=== PATIENT | female | born 1935 | race Caucasian/White ===

== ENCOUNTER 2016-09-14 18:15 | Emergency (ER) | payer MEDICARE ==
[~2016-09-14] VITALS: Ht 165.1 cm; Wt 104.3 kg
[~2016-09-14 18:15] MED LIST: ASPI325T; ATEN50TA2; COLA100C2; DIOV160T5; ISOS10TA2; LASI20TA; LIDO5DIS; POTA20TA; SENN8.6T14; SIMV40TA2; SPIR25TA2; STALEVO; VICO5TAB; VICODINES TAB; [UNRECOGNIZED DRUG - OTHER]
[2016-09-14 19:13] LABS: BASO # 0.1 K/mm3 (0.0-0.2); BASO % 1.3 % (0.0-1.0); EOS # 0.1 K/mm3 (0.0-0.50); EOS % 1.1 % (0.0-3.0); LARGE UNSTAINED CELL # 0.1 K/mm3 (0.0-0.4); LARGE UNSTAINED CELL % 0.7 % (0.0-4.0); LYMPH % 10.1 % (24.0-44.0); MEAN CORPUSCULAR HEMOGLOBIN 31.5 pg (27.0-33.0); MEAN CORPUSCULAR VOLUME 95.5 fl (80.0-96.0); MONO # 0.6 K/mm3 (0.0-0.8); MONO % 5.6 % (0.0-5.0); NEUTROPHILS # 7.9 K/mm3 (1.8-7.7); NEUTROPHILS % 81.2 % (36.0-66.0); PLATELET COUNT, AUTOMATED 228 k/mm3 (150-450); RED CELL DISTRIBUTION WIDTH 13.2 % (11.5-14.5); WHITE BLOOD COUNT 9.8 K/mm3 (4.0-10.0)
--- NOTE | 2016-09-14 19:15 | REP ---
Chest one-view HISTORY: Shortness of breath Comparison: 02/09/2016 The lungs are clear. The heart is normal in size. The pulmonary vasculature is normal in appearance. Impression: No acute disease. Signed by Favian Abad MD 09/14/2016 07:07 P
[2016-09-14 19:27] LABS: ANION GAP 8 MEQ/L (8-16); BLOOD UREA NITROGEN 19 MG/DL (7-18); CALCIUM LEVEL 8.9 MG/DL (8.8-10.2); CARBON DIOXIDE LEVEL 31 MEQ/L (21-32); CHLORIDE LEVEL 99 MEQ/L (98-107); CREATININE FOR GFR 0.88 MG/DL (0.55-1.02); GLOMERULAR FILTRATION RATE > 60.0 (>32); GLUCOSE, FASTING 96 MG/DL (83-110); POTASSIUM SERUM 4.4 MEQ/L (3.5-5.1); SODIUM LEVEL 138 MEQ/L (136-145)
[2016-09-14] MEDS ORDERED: IPRATROPIUM 0.5MG/ALBUTEROL 2.5MG INH SOL UD 3ML (DUONEB)(J7620) As Ordered ONE (19:52)
[2016-09-14 20:07] LABS: ALBUMIN 3.7 GM/DL (3.2-5.2); ALBUMIN/GLOBULIN RATIO 1.23 (1.00-1.93); ALKALINE PHOSPHATASE 121 U/L (45-117); ALT/SGPT 8 U/L (12-78); AST/SGOT 16 U/L (15-37); BILIRUBIN,DIRECT 0.3 MG/DL (0.0-0.2); BILIRUBIN,TOTAL 0.9 MG/DL (0.2-1.0); TOTAL PROTEIN 6.7 GM/DL (6.4-8.2)
[2016-09-14] MEDS ORDERED: ACETAMINOPHEN 325 MG TAB As Ordered ONE (21:40)
[2016-09-14] MEDS ORDERED: ALPRAZolam 0.25 MG TAB As Ordered ONE (21:40)
[2016-09-14] MEDS ORDERED: ISOVUE-370 76% 100ML VIAL (Q9967) As Ordered ONE (21:52)
--- NOTE | 2016-09-14 22:04 | ECGEPIP ---
Stationary ECG Study [facility] - ED Test Date: 2016-09-14 Pat Name: WINTER VALDES Department: Room: - Gender: F Loader Helper: PérezB: 1935 Requested By: Jerome Wasserman Order Number: [id number] Reading MD: eY Hickman Measurements Intervals [place] Rate: 79 P: [place]: 0 QRS: 13 QRSD: 80 T: 33 QT: 349 QTc: 400 Interpretive Statements SINUS RHYTHM Electronically Signed On 09-14-2016 22:04:23 EST by Ye Hickman
--- NOTE | 2016-09-14 22:50 | REPUSA ---
CT angiogram of the chest Clinical statement: Chest pain and shortness of breath. Technique: Multiple axial CT images were obtained from the thoracic inlet through the upper abdomen a fter a bolus administration of nonionic intravenous contrast. Coronal and sagittal reconstructions we re also obtained. No comparison is available. Findings: The pulmonary arteries are well-opacified with contrast, with no intraluminal filling defec ts to suggest embolism. The thoracic aorta is unremarkable. Thyroid gland is within normal limits. Th ere is no thoracic lymphadenopathy. There are no pericardial or pleural effusions. The lungs are marcie r. Limited imaging of the upper abdomen is unremarkable. There are no suspicious osseous lesions. Impression: Unremarkable CT examination of the chest. No evidence of pulmonary embolism.
[2016-09-14] MEDS ORDERED: TRAZ50TA4 PO (23:30)
[2016-09-14] MEDS ORDERED: VOLT1GEL24 TD (23:30)
[2016-09-14] MEDS ORDERED: VENL37TA PO (23:30)
[2016-09-14] MEDS ORDERED: ASPI81TAEC PO (23:30)
[2016-09-14] MEDS ORDERED: SPIR50TA2 PO (23:30)
[2016-09-14] MEDS ORDERED: POTA10CA PO (23:30)
[2016-09-14] MEDS ORDERED: ACET-654 PO (23:30)
[2016-09-14] MEDS ORDERED: ATEN25TA PO (23:30)
[2016-09-14] MEDS ORDERED: LIDO5DIS36 TD (23:30)
[2016-09-14] MEDS ORDERED: NITR4TASL SL (23:30)
[2016-09-14] MEDS ORDERED: [UNRECOGNIZED DRUG - CODE] PO (23:30)
[2016-09-14] MEDS ORDERED: HYDR-3716 PO (23:30)
[2016-09-14] MEDS ORDERED: NYST100024 TOP (23:30)
[2016-09-14] MEDS ORDERED: CORITAB5 PO (23:30)
[2016-09-14] MEDS ORDERED: GABA-283 PO (23:30)
[2016-09-14] MEDS ORDERED: LOPE2CA PO (23:30)
[2016-09-14] MEDS ORDERED: MIRA0.5T PO (23:30)
[2016-09-14] MEDS ORDERED: SIMV20TA2 PO (23:30)
[2016-09-14] MEDS ORDERED: CARB25TA PO (23:30)
[2016-09-14] MEDS ORDERED: KEPP500T6 PO (23:30)
[2016-09-14] MEDS ORDERED: SINE25TACR PO ×2 (23:30)
--- NOTE | 2016-09-15 00:19 | EDDOCDS ---
Physician Documentation [facility] Name: Sagrario Willoughby Age: 81 yrs Sex: Female : 1935 Arrival Date: 09/14/2016 Time: 18:15 Bed 21 Private MD: La Ling Disposition: 09/14 23:31 Critical Care: Critical care not applicable. le Disposition: 09/14/16 23:28 Discharged to Home/Self Care. Impression: Shortness of breath. - Condition is Stable. - Discharge Instructions: Shortness of Breath. - Medication Reconciliation, Local Pharmacy Hours form. - Follow up: La Ling; When: Call to arrange an appointment; Reason: Recheck today's complaints, Continuance of care. - Problem is new. - Symptoms have improved. - Notes: Return to the ED for any further concerns Historical: - Allergies: Codeine Sulfate; Iron (Ferrous Gluconate); Talwin; - Home Meds: 1. carbidopa-levodopa 25-100 mg Oral tab 0.5 tab 3 times per day 2. carbidopa-levodopa 25-100 mg Oral TbER 1 tab 3 times per day tapering dose getting stronger 3. loperamide 2 mg Oral tab 2 tabs 4. potassium chloride 10 mEq Oral cpER 2 caps 2 times per day 5. spironolactone 50 mg Oral tab 1 tab 2 times per day 6. nystatin 100,000 unit/gram Topical powd 3 times per day 7. venlafaxine 37.5 mg oral cp24 1 cap once daily 8. Mirapex 0.5 mg Oral tab 1 tab 9. Requip 2 mg Oral tab 3 tabs daily 10. acetaminophen 325 mg Oral tab 2 tabs every 4-6 hours 11. aspirin 325 mg Oral tab 1 tab once daily 12. Coricidin HBP 10-200 mg oral cap Unknown as needed 13. Voltaren 1 % topical gel 4 times per day 14. gabapentin 400 mg Oral cap daily 15. hydrocodone-acetaminophen 7.5-325 mg Oral tab 1 tab every 4 hours 16. Lidoderm 5 % Topical ptmd 1 patch once daily 17. Nitrostat 0.4 mg SL subl 1 tab every 5 minutes 18. trazodone 50 mg Oral tab 1 tab daily 19. Keppra 500 mg Oral tab 1 tab 2 times per day 20. simvastatin 20 mg Oral tab 1 tab once daily 21. atenolol 25 mg Oral tab 1 tab once daily - PMHx: edema; Epilepsy; Hypertension; Parkinson's Disease; paralysis agitans; - PSHx: Disc surgery; Cholecystectomy; Hysterectomy; low back surgery; c5 graft from hip; Cardiac stents; heart catherization; right achilles tendon lengthening; c8 fusion; - Social history: Smoking status: Patient states was never smoker of tobacco. No barriers to communication noted, The patient speaks fluent Polish, Speaks appropriately for age. - Family history: Not pertinent. - : The pt / caregiver states he / she is not on anticoagulants. Home medication list is obtained from the facility MAR. - Exposure Risk Screening:: None identified. Vital Signs: 18:18 BP 157 / 81; Pulse 84; Resp 18 S; Temp 97.6(O); Pulse Ox 94% on R/A; Weight 104.33 kg / dd6 230.01 lbs (R); Height 5 ft. 5 in. (165.10 cm) (R); 19:01 Pulse 82 MON; kas2 19:01 Resp 18; Temp 97.9(O); Pain 0/10; kas2 19:02 BP 145 / 66 (auto/); kas2 19:17 BP 144 / 63 (auto/); kas2 19:17 Pulse 78 MON; Pulse Ox 96% ; kas2 19:32 BP 179 / 74 (auto/); kas2 19:32 Pulse 80 MON; Pulse Ox 95% ; kas2 20:32 BP 155 / 67 (auto/); kas2 20:32 Pulse 90 MON; Pulse Ox 93% ; kas2 21:11 BP 145 / 67 (auto/); kas2 21:11 Pulse 92 MON; Pulse Ox 95% ; kas2 21:32 BP 127 / 65 (auto/); kas2 21:32 Pulse 88 MON; Pulse Ox 94% ; kas2 22:02 BP 136 / 99 (auto/); kas2 22:02 Pulse 84 MON; Pulse Ox 94% ; kas2 22:32 BP 143 / 65 (auto/); kas2 22:32 Pulse 82 MON; Pulse Ox 94% ; kas2 23:33 BP 145 / 64; Pulse 85; Resp 18; Temp 98.9(TE); Pulse Ox 98% on R/A; Pain 0/10; zaid 18:18 Body Mass Index 38.27 (104.33 kg, 165.10 cm) dd6 MDM: 18:50 -Blood Culture (Adults Only), peripheral from different site, or from device/port/PICC ml6 etc. if present ordered. 18:50 If pre-RCE wait time >60 minutes, inform reg. staff to do full reg ordered. ml6 18:50 Undress patient appropriately for examination ordered. ml6 18:50 -Blood Culture Ordered. EDMS 18:50 -Influenza A&B Rapid Antigen - Nose Ordered. EDMS 18:50 BMP Ordered. EDMS 18:51 BNP Ordered. EDMS 18:51 CBC with Diff Ordered. EDMS 18:51 Cardiac Marker Panel Ordered. EDMS 18:51 ECG WITH READING ER PHYS+CARDIAG ordered. EDMS 18:58 Chest, 1 view Ordered. EDMS 19:37 BNP Reviewed. le 19:37 CBC with Diff Reviewed. le 19:37 Chest, 1 view Reviewed. le 19:39 BMP Reviewed. le 19:39 -Influenza A&B Rapid Antigen - Nose Reviewed. le 19:39 Cardiac Marker Panel Reviewed. le 19:40 D-Dimer Quant Ordered. EDMS 19:41 Albuterol-Ipratropium 3 ml Inhalation once ordered. le 19:41 Call Respiratory ordered. le 19:41 Call Respiratory ordered. le 19:43 Lactic Acid (Webb tube on ice) Ordered. EDMS 19:51 Call Respiratory complete. tmm1 19:52 Call Respiratory complete. tmm1 19:53 -Blood Culture (Adults Only), peripheral from different site, or from device/port/PICC tmm1 etc. if present complete. 19:53 BLOOD CULTURES Ordered. EDMS 19:56 LIVER PROFILE Ordered. EDMS 20:14 BMP Reviewed. le 20:14 D-Dimer Quant Reviewed. le 20:14 LIVER PROFILE Reviewed. le 20:14 Cardiac Marker Panel Reviewed. le 20:16 CT Chest Angio R/O PE Ordered. EDMS 21:25 Acetaminophen Tablet 650 mg PO once ordered. le 21:27 BED REQUEST+ADM ordered. EDMS 21:38 ALPRAZolam Tablet 0.5 mg PO once ordered. le 22:50 Ambulate Patient wth Pulse Oximetry ordered. le 09/15 00:08 Financial registration complete. hs2 Administered Medications: 09/14 20:04 Drug: Albuterol-Ipratropium 3 ml [ipratropium-albuterol 0.5 mg-3 mg(2.5 mg base)/3 mL rs5 nebulization soln (3 mL)] Route: Inhalation; 21:54 Drug: Acetaminophen 650 mg [acetaminophen 325 mg tablet (2 tabs)] Route: PO; kas2 21:54 Drug: ALPRAZolam 0.5 mg [alprazolam 0.25 mg tablet (2 tabs)] Route: PO; kas2 Signatures: Dispatcher [employer] EDMS Isela Snider, ORGAN RECOVERY COORDINATOR ORGAN RECOVERY COORDINATOR Clayton Lopez, RN RN ml6 Brittany Owusu RN RN hs1 McLTia yoosa, COMPLAINT INVESTIGATIONS OFFICER COMPLAINT INVESTIGATIONS OFFICER tmm1 Brian Brown RN RN Dana RyaRN RN nn1 Ceci Newton, Reg Reg hs2 Arjun Yee RT rs5 Chelita Rojas RN kas2 The chart was reviewed and I authenticate all verbal orders and agree with the evaluation and treatment provided.Corrections: (The following items were deleted from the chart) 18:58 18:51 Chest, 2 view (PA\E\Lat)+XR ordered. EDMS EDMS 19:56 19:43 LIVER PROFILE+LAB ordered. EDMS EDMS 20:12 19:43 ARTERIAL BLOOD GAS+LAB ordered. EDMS EDMS MTDD
--- NOTE | 2016-09-15 00:19 | EDDOCDS ---
Nurse's Notes [facility] Name: Sagrario Valdes Age: 81 yrs Sex: Female : 1935 Arrival Date: 09/14/2016 Time: 18:15 Bed 21 Private MD: La Ling Diagnosis: Shortness of breath Presentation: 09/14 18:21 Presenting complaint: Patient states: [facility] concerned with decreasing oxygen hs1 level. Patient reports arm pain and headache recently decreased but was there this morning per patient. Adult Sepsis Screening: The patient does not have new or worsening altered mentation. Patient's respiratory rate is less than 22. Systolic blood pressure is greater than 100. Patient has a qSOFA score of 0- Negative Sepsis Screen. Suicide/Homicide risk assessment- the patient denies having any suicidal and/or homicidal ideations and does not present with any other emotional, behavioral or mental health complaints. 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 Transition of care: patient was not received from another setting of care. 18:21 Acuity: ZAID Level 3 hs1 18:21 Method Of Arrival: Walkin/Carried/Asstd hs1 Triage Assessment: 18:34 General: Appears in no apparent distress, Behavior is appropriate for age, cooperative. hs1 Pain: Denies pain. Neurological: No deficits noted. Respiratory: Onset: The symptoms/episode began/occurred yesterday, Reports shortness of breath. Derm: Skin is pink, warm & dry. normal. Historical: - Allergies: Codeine Sulfate; Iron (Ferrous Gluconate); Talwin; - Home Meds: 1. carbidopa-levodopa 25-100 mg Oral tab 0.5 tab 3 times per day 2. carbidopa-levodopa 25-100 mg Oral TbER 1 tab 3 times per day tapering dose getting stronger 3. loperamide 2 mg Oral tab 2 tabs 4. potassium chloride 10 mEq Oral cpER 2 caps 2 times per day 5. spironolactone 50 mg Oral tab 1 tab 2 times per day 6. nystatin 100,000 unit/gram Topical powd 3 times per day 7. venlafaxine 37.5 mg oral cp24 1 cap once daily 8. Mirapex 0.5 mg Oral tab 1 tab 9. Requip 2 mg Oral tab 3 tabs daily 10. acetaminophen 325 mg Oral tab 2 tabs every 4-6 hours 11. aspirin 325 mg Oral tab 1 tab once daily 12. Coricidin HBP 10-200 mg oral cap Unknown as needed 13. Voltaren 1 % topical gel 4 times per day 14. gabapentin 400 mg Oral cap daily 15. hydrocodone-acetaminophen 7.5-325 mg Oral tab 1 tab every 4 hours 16. Lidoderm 5 % Topical ptmd 1 patch once daily 17. Nitrostat 0.4 mg SL subl 1 tab every 5 minutes 18. trazodone 50 mg Oral tab 1 tab daily 19. Keppra 500 mg Oral tab 1 tab 2 times per day 20. simvastatin 20 mg Oral tab 1 tab once daily 21. atenolol 25 mg Oral tab 1 tab once daily - PMHx: edema; Epilepsy; Hypertension; Parkinson's Disease; paralysis agitans; - PSHx: Disc surgery; Cholecystectomy; Hysterectomy; low back surgery; c5 graft from hip; Cardiac stents; heart catherization; right achilles tendon lengthening; c8 fusion; - Social history: Smoking status: Patient states was never smoker of tobacco. No barriers to communication noted, The patient speaks fluent Canadian, Speaks appropriately for age. - Family history: Not pertinent. - : The pt / caregiver states he / she is not on anticoagulants. Home medication list is obtained from the facility MAR. - Exposure Risk Screening:: None identified. Screenin:06 Screening information is obtained from the patient. Fall risk: At risk due to age. jmb Assistance ADL's: requires no assistance with activities of daily living. Abuse/DV Screen: The patient / caregiver reports he/she is: not in a situation that causes fear, pain or injury. Nutritional screening: No deficits noted. home support is adequate. 09/15 00:17 Advance Directives: There is an active DNR order and the pt has a copy here at this nn1 time. Assessment: 09/14 19:02 General: Verbal report given by Quintin Benton RN. Assumed care of patient at this time.. kas2 19:06 General: Appears in no apparent distress, comfortable, Behavior is appropriate for age, jmb cooperative. Pain: Denies pain. Neurological: Level of Consciousness is awake, alert, obeys commands, Oriented to person, place, time, Car Seat Maker are weak bilaterally Speech is normal, Facial symmetry appears normal, Facial symmetry: tongue is midline. Cardiovascular: Capillary refill < 3 seconds Heart tones present Pulses are all present. Rhythm is regular. Respiratory: Airway is patent Respiratory effort is even, unlabored, Respiratory pattern is regular, symmetrical, Breath sounds are diminished bilaterally. GI: Abdomen is obese, Bowel sounds present X 4 quads. Abd is soft X 4 quads. Derm: Skin is pink, warm & dry. Musculoskeletal: Range of motion intact in all extremities. 19:49 General: Appears in no apparent distress, comfortable, well nourished, well groomed, kas2 Behavior is appropriate for age, cooperative. Pain: Denies pain. Neurological: Level of Consciousness is awake, alert, obeys commands, Oriented to person, place, time. Cardiovascular: Capillary refill < 3 seconds Heart tones S1 S2 present Rhythm is sinus rhythm No ectopy. Respiratory: Airway is patent Respiratory effort is even, unlabored, Respiratory pattern is regular, symmetrical, Breath sounds are diminished bilaterally. Derm: Skin is intact, is healthy with good turgor, Skin is dry, Skin is pink, warm & dry. Skin temperature is warm. Musculoskeletal: Range of motion intact in all extremities. 20:38 General: Patient resting in bed with family at bedside. Denies pain or discomfort. No kas2 distress noted. Airway patent and respiratory effort even and unlabored. Call cruz within reach. Will continue to monitor.. 21:15 General: Patient very anxious and not wanting CT scan and thinking about leaving. RN kas2 and daughter talked patient in to staying and calmed her down. Isela Ch PRODUCTION STATISTICAL CLERK aware. Meds ordered. . 22:00 General: Patient gone to CT scan via hospital bed with RN. kas2 22:21 General: Patient back from CT scan via hospital bed with RN. Resettled in bed. No kas2 apparent distress noted. VSS. Daughter at bedside. Appears comfortable. Call cruz within reach. Will continue to monitor.. 22:42 General: Appears in no apparent distress, comfortable, Behavior is appropriate for age, kas2 cooperative. Pain: Denies pain. Neurological: Level of Consciousness is awake, alert, Oriented to person, place, time. Respiratory: Airway is patent Respiratory effort is even, unlabored, Respiratory pattern is regular, symmetrical. Derm: Skin is intact, Skin is dry, Skin is pink, warm & dry. Skin temperature is warm. Vital Signs: 18:18 BP 157 / 81; Pulse 84; Resp 18 S; Temp 97.6(O); Pulse Ox 94% on R/A; Weight 104.33 kg dd6 (R); Height 5 ft. 5 in. (165.10 cm) (R); 19:01 Pulse 82 MON; kas2 19:01 Resp 18; Temp 97.9(O); Pain 0/10; kas2 19:02 BP 145 / 66 (auto/); kas2 19:17 BP 144 / 63 (auto/); kas2 19:17 Pulse 78 MON; Pulse Ox 96% ; kas2 19:32 BP 179 / 74 (auto/); kas2 19:32 Pulse 80 MON; Pulse Ox 95% ; kas2 20:32 BP 155 / 67 (auto/); kas2 20:32 Pulse 90 MON; Pulse Ox 93% ; kas2 21:11 BP 145 / 67 (auto/); kas2 21:11 Pulse 92 MON; Pulse Ox 95% ; kas2 21:32 BP 127 / 65 (auto/); kas2 21:32 Pulse 88 MON; Pulse Ox 94% ; kas2 22:02 BP 136 / 99 (auto/); kas2 22:02 Pulse 84 MON; Pulse Ox 94% ; kas2 22:32 BP 143 / 65 (auto/); kas2 22:32 Pulse 82 MON; Pulse Ox 94% ; kas2 23:33 BP 145 / 64; Pulse 85; Resp 18; Temp 98.9(TE); Pulse Ox 98% on R/A; Pain 0/10; zaid 18:18 Body Mass Index 38.27 (104.33 kg, 165.10 cm) dd6 Vitals: 18:18 Log In Time: September 14, 2016 at 18:16. dd6 ED Course: 18:17 Patient visited by Elia Edmondson PCA. dd6 18:17 Patient moved to Waiting dd6 18:18 La Ling is Private Physician. dd6 18:19 Patient moved to Pre RCE dd6 18:22 Triage Initiated hs1 18:36 Patient moved to 21 hs1 18:57 Chelita Rojas,RN is Primary Nurse. kas2 19:06 Patient visited by Chelita Rojas RN. kas2 19:06 The patient / caregiver is instructed regarding the plan of care and ED course. Cardiac jmb monitor on. Pulse ox on. NIBP on. 19:06 -Blood Culture Sent. jmb 19:06 -Influenza A&B Rapid Antigen - Nose Sent. jmb 19:06 Inserted saline lock: 20 gauge in left antecubital area and blood collected. The jmb patient tolerated the procedure well. Labs drawn. (by ED staff). Sent per order to lab. Labs/Blood culture drawn. 19:08 Patient visited by Brian Brown RN. jmsherwin 19:16 Patient visited by Rose Herndon PCA. zaid 19:16 Pt greeted and oriented to ED. Patient advised of names of staff involved in care, zaid location of call cruz, wait times and NPO status. Accompanied by Family Member, Patient has correct armband on for positive identification. Placed in gown. Bed in low position. Call light in reach. Side rails up X2. 19:16 Chest, 1 view Returned. EDMS 19:16 EKG done. (by ED staff). Reviewed by Rayo Portillo DO. zaid 19:21 Isela Snider FNP is PHCP. le 19:38 Patient visited by Isela Snider FNP. le 19:40 Patient visited by Isela Snider FNP. le 19:49 D-Dimer Quant Sent. kas2 19:50 Patient visited by Chelita Rojas RN. kas2 20:12 Lactic Acid (Webb tube on ice) Sent. kas2 20:12 BLOOD CULTURES Sent. kas2 20:12 No procedures done that require assistance. Labs drawn. (by ED staff). Sent per order kas2 to lab. 20:13 Patient visited by Chelita Rojas RN. kas2 20:40 Patient visited by Chelita Rojas RN. kas2 21:15 Patient visited by Chelita Rojas RN. kas2 21:54 Patient visited by Chelita Rojas RN. kas2 22:08 EKG-ADULT Returned. EDMS 22:23 Patient visited by Chelita Rojas RN. kas2 22:46 Patient visited by Chelita Rojas RN. kas2 22:59 CT Chest Angio R/O PE Returned. EDMS 23:28 La Ling is Referral Physician. le 23:33 Patient visited by Rose Herndon PCA. zaid Administered Medications: 20:04 Drug: Albuterol-Ipratropium 3 ml [ipratropium-albuterol 0.5 mg-3 mg(2.5 mg base)/3 mL rs5 nebulization soln (3 mL)] Route: Inhalation; 21:54 Drug: Acetaminophen 650 mg [acetaminophen 325 mg tablet (2 tabs)] Route: PO; kas2 21:54 Drug: ALPRAZolam 0.5 mg [alprazolam 0.25 mg tablet (2 tabs)] Route: PO; kas2 RT: 20:04 Initial Med Neb Given as ordered Patient was instructed and evaluated on procedure rs5 Patient tolerated procedure well without adverse effect. Respiratory: Respiratory effort is even, unlabored, Respiratory pattern is regular symmetrical, Reports pt says she is breathing fine. 20:07 ABG's Patient Refused ABG. rs5 Order Results: Lab Order: -Influenza A&B Rapid Antigen - Nose; SPEC'M 09/14/16 18:55 Test: INFLUENZA A RAPID SCR by ICA; Value: INFLUENZA A RESULTS NEGATIVE; Status: F Test: INFLUENZA A RAPID SCR by ICA; Value: Comments:; Status: F Test: INFLUENZA B RAPID SCR by ICA; Value: INFLUENZA B RESULTS NEGATIVE; Status: F Test Note: ; The Influenza test is a direct rapid immunoassay for the qualitative detection of Influenza viral antigen. Cell culture (Viral Culture) testing should be considered to confirm NEGATIVE results and to assist in detecting other viruses that can provide similar clinical symptoms. Please contact the lab within 24 hours [phone]) if confirmatory testing is desired. Lab Order: BMP; SPEC'M 09/14/16 18:55 Test: GLUCOSE, FASTING; Value: 96; Range: 83-110; Units: MG/DL; Status: F Test: BLOOD UREA NITROGEN; Value: 19; Range: 7-18; Abnormal: Above high normal; Units: MG/DL; Status: F Test: CREATININE FOR GFR; Value: 0.88; Range: 0.55-1.02; Units: MG/DL; Status: F Test: GLOMERULAR FILTRATION RATE; Value: > 60.0; Range: >32; Status: F Test: SODIUM LEVEL; Value: 138; Range: 136-145; Units: MEQ/L; Status: F Test: POTASSIUM SERUM; Value: 4.4; Range: 3.5-5.1; Units: MEQ/L; Status: F Test: CHLORIDE LEVEL; Value: 99; Range: 98-107; Units: MEQ/L; Status: F Test: CARBON DIOXIDE LEVEL; Value: 31; Range: 21-32; Units: MEQ/L; Status: F Test: ANION GAP; Value: 8; Range: 8-16; Units: MEQ/L; Status: F Test: CALCIUM LEVEL; Value: 8.9; Range: 8.8-10.2; Units: MG/DL; Status: F Test Note: ; Units are mL/min/1.73 m2 Chronic Kidney Disease Staging per NKF: Stage I & II GFR >=60 Normal to Mildly Decreased Stage III GFR 30-59 Moderately Decreased Stage IV GFR 15-29 Severely Decreased Stage V GFR <15 Very Little GFR Left ESRD GFR <15 on CRM DEVELOPER Test: AST/SGOT; Range: 15-37; Units: U/L; Status: I Test: ALT/SGPT; Range: 12-78; Units: U/L; Status: I Test: ALKALINE PHOSPHATASE; Range: 45-117; Units: U/L; Status: I Test: BILIRUBIN,TOTAL; Range: 0.2-1.0; Units: MG/DL; Status: I Test: BILIRUBIN,DIRECT; Range: 0.0-0.2; Units: MG/DL; Status: I Test: TOTAL PROTEIN; Range: 6.4-8.2; Units: GM/DL; Status: I Test: ALBUMIN; Range: 3.2-5.2; Units: GM/DL; Status: I Test: ALBUMIN/GLOBULIN RATIO; Range: 1.00-1.93; Status: I Lab Order: BNP; SPEC'M 09/14/16 18:55 Test: BRAIN NATRIURETIC PEPTIDE; Value: 204; Range: <100; Abnormal: Above high normal; Units: PG/ML; Status: F Lab Order: CBC with Diff; SPEC'M 09/14/16 18:55 Test: WHITE BLOOD COUNT; Value: 9.8; Range: 4.0-10.0; Units: K/mm3; Status: F Test: RED BLOOD COUNT; Value: 4.36; Range: 4.00-5.40; Units: M/mm3; Status: F Test: HEMOGLOBIN; Value: 13.7; Range: 12.0-16.0; Units: g/dl; Status: F Test: HEMATOCRIT; Value: 41.6; Range: 36.0-47.0; Units: %; Status: F Test: MEAN CORPUSCULAR VOLUME; Value: 95.5; Range: 80.0-96.0; Units: fl; Status: F Test: MEAN CORPUSCULAR HEMOGLOBIN; Value: 31.5; Range: 27.0-33.0; Units: pg; Status: F Test: MEAN CORPUSCULAR HGB CONC; Value: 33.0; Range: 32.0-36.5; Units: g/dl; Status: F Test: RED CELL DISTRIBUTION WIDTH; Value: 13.2; Range: 11.5-14.5; Units: %; Status: F Test: PLATELET COUNT, AUTOMATED; Value: 228; Range: 150-450; Units: k/mm3; Status: F Test: NEUTROPHILS %; Value: 81.2; Range: 36.0-66.0; Abnormal: Above high normal; Units: %; Status: F Test: LYMPH %; Value: 10.1; Range: 24.0-44.0; Abnormal: Below low normal; Units: %; Status: F Test: MONO %; Value: 5.6; Range: 0.0-5.0; Abnormal: Above high normal; Units: %; Status: F Test: EOS %; Value: 1.1; Range: 0.0-3.0; Units: %; Status: F Test: BASO %; Value: 1.3; Range: 0.0-1.0; Abnormal: Above high normal; Units: %; Status: F Test: LARGE UNSTAINED CELL %; Value: 0.7; Range: 0.0-4.0; Units: %; Status: F Test: NEUTROPHILS #; Value: 7.9; Range: 1.8-7.7; Abnormal: Above high normal; Units: K/mm3; Status: F Test: LYMPH #; Value: 1.0; Range: 1.5-4.5; Abnormal: Below low normal; Units: K/mm3; Status: F Test: MONO #; Value: 0.6; Range: 0.0-0.8; Units: K/mm3; Status: F Test: EOS #; Value: 0.1; Range: 0.0-0.50; Units: K/mm3; Status: F Test: BASO #; Value: 0.1; Range: 0.0-0.2; Units: K/mm3; Status: F Test: LARGE UNSTAINED CELL #; Value: 0.1; Range: 0.0-0.4; Units: K/mm3; Status: F Lab Order: Cardiac Marker Panel; [facility] 09/14/16 18:55 Test: CPK CREATINE PHOSPHOKINASE; Value: 74; Range: 26-192; Units: U/L; Status: F Test: CK-MB VALUE MASS; Value: 1.0; Range: 0.0-3.6; Units: NG/ML; Status: F Test: MB/CK RELATIVE INDEX; Value: 1.35; Range: < OR =4; Status: F Test: TROPONIN I; Value: < 0.02; Range: < 0.10; Units: NG/ML; Status: F Test Note: ; DIAGNOSIS CRITERIA MMB ng/ml Relative Index (RI) NON-AMI < or = 5 N/A WEBB ZONE > 5 < or = 4 AMI > 5 > 4 Lab Order: D-Dimer Quant; [facility] 09/14/16 19:35 Test: D-DIMER QUANT; Value: 894.2; Range: <500; Abnormal: Above high normal; Units: ng/ml; Status: F Lab Order: Lactic Acid (Webb tube on ice); [facility] 09/14/16 20:07 Test: LACTIC ACID LEVEL, LACTATE; Value: 1.2; Range: 0.4-2.0; Units: MMOL/L; Status: F Lab Order: LIVER PROFILE; [facility] 09/14/16 18:55 Test: AST/SGOT; Value: 16; Range: 15-37; Units: U/L; Status: F Test: ALT/SGPT; Value: 8; Range: 12-78; Abnormal: Below low normal; Units: U/L; Status: F Test: ALKALINE PHOSPHATASE; Value: 121; Range: 45-117; Abnormal: Above high normal; Units: U/L; Status: F Test: BILIRUBIN,TOTAL; Value: 0.9; Range: 0.2-1.0; Units: MG/DL; Status: F Test: BILIRUBIN,DIRECT; Value: 0.3; Range: 0.0-0.2; Abnormal: Above high normal; Units: MG/DL; Status: F Test: TOTAL PROTEIN; Value: 6.7; Range: 6.4-8.2; Units: GM/DL; Status: F Test: ALBUMIN; Value: 3.7; Range: 3.2-5.2; Units: GM/DL; Status: F Test: ALBUMIN/GLOBULIN RATIO; Value: 1.23; Range: 1.00-1.93; Status: F Radiology Order: EKG-ADULT Test: EKG-ADULT REASON FOR EXAMINATION: Shortness of Breath; Stationary ECG Study; [facility] - ED; ; Test Date: 2016-09-14; Pat Name: SAGRARIO VALDES Department:; Room: -; Gender: F X Ray Physician: abimbola; : 1935 Requested By: Jerome Wasserman; Order Number: [id number] Reading MD: Ye Hickman; Measurements; Intervals [place]; Rate: 79 P:; NV: 0 QRS: 13; QRSD: 80 T: 33; QT: 349; QTc: 400; Interpretive Statements; SINUS RHYTHM; ; Electronically Signed On 09-14-2016 22:04:23 EST by Ye Hickman; Radiology Order: Chest, 1 view Test: Chest, 1 view REASON FOR EXAMINATION: Shortness of Breath; Chest one-view; ; HISTORY: Shortness of breath; ; Comparison: 02/09/2016; ; The lungs are clear. The heart is normal in size. The pulmonary vasculature is; normal in appearance.; ; Impression: No acute disease.; ; ; Signed by; Favian Abad MD 09/14/2016 07:07 P; Radiology Order: CT Chest Angio R/O PE Test: CT Chest Angio R/O PE REASON FOR EXAMINATION: Shortness of Breath; ; CT angiogram of the chest; Clinical statement: Chest pain and shortness of breath.; Technique: Multiple axial CT images were obtained from the thoracic inlet through the upper abdomen a; fter a bolus administration of nonionic intravenous contrast. Coronal and sagittal reconstructions we; re also obtained.; No comparison is available.; Findings: The pulmonary arteries are well-opacified with contrast, with no intraluminal filling defec; ts to suggest embolism. The thoracic aorta is unremarkable. Thyroid gland is within normal limits. Th; ere is no thoracic lymphadenopathy. There are no pericardial or pleural effusions. The lungs are marcie; r. Limited imaging of the upper abdomen is unremarkable. There are no suspicious osseous lesions.; Impression: Unremarkable CT examination of the chest. No evidence of pulmonary embolism.; ; Outcome: 23:28 Discharge ordered by Provider. le 09/15 00:14 Discharge Assessment: Patient awake, alert and oriented x 3. No cognitive and/or nn1 functional deficits noted. Patient verbalized understanding of disposition instructions. 00:14 Discharge Assessment: patient administered narcotics - no. The following High Risk nn1 Discharge criteria are identified: None. Discharged to home via wheelchair, with family. Condition: stable Condition: improved. CT Study completed. Property :Personal belongings accompany Pt. 00:16 Discharged to fpc. Report called to EDUARDO Ballard Patient taken back to [facility] by nn1 [facility]. [place] notified. 00:17 Patient left the ED. nn1 Signatures: Dispatcher [employer] EDMS Isela Snider, HOME PRODUCTION STATISTICAL CLERK Elia Collier, DATA QUALITY CONSULTANT DATA QUALITY CONSULTANT dd6 Brittany Owusu, RN RN hs1 Rose Herndon, DATA QUALITY CONSULTANT DATA QUALITY CONSULTANT zaid Arjun Yee,RT RT rs5 Brian Brown RN RN jmb Nunez, NikkoleRN RN nn1 Chelita Rojas,EDUARDO RN [facility] Corrections: (The following items were deleted from the chart) 09/14 19:56 19:49 LIVER PROFILE+LAB sent. kas2 EDMS 20:07 20:04 ABG's drawn from left radial artery allens test done and positive pressure held rs5 for 5 minutes no bleeding noted pressure bandage applied specimen sent pt. tolerated well rs5 20:12 20:04 ARTERIAL BLOOD GAS+LAB sent. rs5 EDMS MTDD
--- NOTE | 2016-09-17 01:18 | EDDOCDS ---
Physician Documentation [facility] Name: Sagrario Willoughby Age: 81 yrs Sex: Female : 1935 Arrival Date: 09/14/2016 Time: 18:15 Bed 21 Private MD: La Ling Disposition: 09/14 23:31 Critical Care: Critical care not applicable. le Disposition: 09/14/16 23:28 Discharged to Home/Self Care. Impression: Shortness of breath. - Condition is Stable. - Discharge Instructions: Shortness of Breath. - Medication Reconciliation, Local Pharmacy Hours form. - Follow up: La Ling; When: Call to arrange an appointment; Reason: Recheck today's complaints, Continuance of care. - Problem is new. - Symptoms have improved. - Notes: Return to the ED for any further concerns Historical: - Allergies: Codeine Sulfate; Iron (Ferrous Gluconate); Talwin; - Home Meds: 1. carbidopa-levodopa 25-100 mg Oral tab 0.5 tab 3 times per day 2. carbidopa-levodopa 25-100 mg Oral TbER 1 tab 3 times per day tapering dose getting stronger 3. loperamide 2 mg Oral tab 2 tabs 4. potassium chloride 10 mEq Oral cpER 2 caps 2 times per day 5. spironolactone 50 mg Oral tab 1 tab 2 times per day 6. nystatin 100,000 unit/gram Topical powd 3 times per day 7. venlafaxine 37.5 mg oral cp24 1 cap once daily 8. Mirapex 0.5 mg Oral tab 1 tab 9. Requip 2 mg Oral tab 3 tabs daily 10. acetaminophen 325 mg Oral tab 2 tabs every 4-6 hours 11. aspirin 325 mg Oral tab 1 tab once daily 12. Coricidin HBP 10-200 mg oral cap Unknown as needed 13. Voltaren 1 % topical gel 4 times per day 14. gabapentin 400 mg Oral cap daily 15. hydrocodone-acetaminophen 7.5-325 mg Oral tab 1 tab every 4 hours 16. Lidoderm 5 % Topical ptmd 1 patch once daily 17. Nitrostat 0.4 mg SL subl 1 tab every 5 minutes 18. trazodone 50 mg Oral tab 1 tab daily 19. Keppra 500 mg Oral tab 1 tab 2 times per day 20. simvastatin 20 mg Oral tab 1 tab once daily 21. atenolol 25 mg Oral tab 1 tab once daily - PMHx: edema; Epilepsy; Hypertension; Parkinson's Disease; paralysis agitans; - PSHx: Disc surgery; Cholecystectomy; Hysterectomy; low back surgery; c5 graft from hip; Cardiac stents; heart catherization; right achilles tendon lengthening; c8 fusion; - Social history: Smoking status: Patient states was never smoker of tobacco. No barriers to communication noted, The patient speaks fluent Portuguese, Speaks appropriately for age. - Family history: Not pertinent. - : The pt / caregiver states he / she is not on anticoagulants. Home medication list is obtained from the facility MAR. - Exposure Risk Screening:: None identified. Vital Signs: 18:18 BP 157 / 81; Pulse 84; Resp 18 S; Temp 97.6(O); Pulse Ox 94% on R/A; Weight 104.33 kg / dd6 230.01 lbs (R); Height 5 ft. 5 in. (165.10 cm) (R); 19:01 Pulse 82 MON; kas2 19:01 Resp 18; Temp 97.9(O); Pain 0/10; kas2 19:02 BP 145 / 66 (auto/); kas2 19:17 BP 144 / 63 (auto/); kas2 19:17 Pulse 78 MON; Pulse Ox 96% ; kas2 19:32 BP 179 / 74 (auto/); kas2 19:32 Pulse 80 MON; Pulse Ox 95% ; kas2 20:32 BP 155 / 67 (auto/); kas2 20:32 Pulse 90 MON; Pulse Ox 93% ; kas2 21:11 BP 145 / 67 (auto/); kas2 21:11 Pulse 92 MON; Pulse Ox 95% ; kas2 21:32 BP 127 / 65 (auto/); kas2 21:32 Pulse 88 MON; Pulse Ox 94% ; kas2 22:02 BP 136 / 99 (auto/); kas2 22:02 Pulse 84 MON; Pulse Ox 94% ; kas2 22:32 BP 143 / 65 (auto/); kas2 22:32 Pulse 82 MON; Pulse Ox 94% ; kas2 23:33 BP 145 / 64; Pulse 85; Resp 18; Temp 98.9(TE); Pulse Ox 98% on R/A; Pain 0/10; zaid 18:18 Body Mass Index 38.27 (104.33 kg, 165.10 cm) dd6 MDM: 18:50 -Blood Culture (Adults Only), peripheral from different site, or from device/port/PICC ml6 etc. if present ordered. 18:50 If pre-RCE wait time >60 minutes, inform reg. staff to do full reg ordered. ml6 18:50 Undress patient appropriately for examination ordered. ml6 18:50 -Blood Culture Ordered. EDMS 18:50 -Influenza A&B Rapid Antigen - Nose Ordered. EDMS 18:50 BMP Ordered. EDMS 18:51 BNP Ordered. EDMS 18:51 CBC with Diff Ordered. EDMS 18:51 Cardiac Marker Panel Ordered. EDMS 18:51 ECG WITH READING ER PHYS+CARDIAG ordered. EDMS 18:58 Chest, 1 view Ordered. EDMS 19:37 BNP Reviewed. le 19:37 CBC with Diff Reviewed. le 19:37 Chest, 1 view Reviewed. le 19:39 BMP Reviewed. le 19:39 -Influenza A&B Rapid Antigen - Nose Reviewed. le 19:39 Cardiac Marker Panel Reviewed. le 19:40 D-Dimer Quant Ordered. EDMS 19:41 Albuterol-Ipratropium 3 ml Inhalation once ordered. le 19:41 Call Respiratory ordered. le 19:41 Call Respiratory ordered. le 19:43 Lactic Acid (Webb tube on ice) Ordered. EDMS 19:51 Call Respiratory complete. tmm1 19:52 Call Respiratory complete. tmm1 19:53 -Blood Culture (Adults Only), peripheral from different site, or from device/port/PICC tmm1 etc. if present complete. 19:53 BLOOD CULTURES Ordered. EDMS 19:56 LIVER PROFILE Ordered. EDMS 20:14 BMP Reviewed. le 20:14 D-Dimer Quant Reviewed. le 20:14 LIVER PROFILE Reviewed. le 20:14 Cardiac Marker Panel Reviewed. le 20:16 CT Chest Angio R/O PE Ordered. EDMS 21:25 Acetaminophen Tablet 650 mg PO once ordered. le 21:27 BED REQUEST+ADM ordered. EDMS 21:38 ALPRAZolam Tablet 0.5 mg PO once ordered. le 22:50 Ambulate Patient wth Pulse Oximetry ordered. le 09/15 00:08 Financial registration complete. hs2 00:24 [facility] Payment Agreement was scanned into [employer] and attached to record. hs2 10:34 T-Sheet-- Draft Copy was scanned into [employer] and attached to record. gb 10:35 ECG/EKG was scanned into [employer] and attached to record. gb 10:35 Radiology Report was scanned into [employer] and attached to record. gb Administered Medications: 09/14 20:04 Drug: Albuterol-Ipratropium 3 ml [ipratropium-albuterol 0.5 mg-3 mg(2.5 mg base)/3 mL rs5 nebulization soln (3 mL)] Route: Inhalation; 21:54 Drug: Acetaminophen 650 mg [acetaminophen 325 mg tablet (2 tabs)] Route: PO; kas2 21:54 Drug: ALPRAZolam 0.5 mg [alprazolam 0.25 mg tablet (2 tabs)] Route: PO; kas2 Signatures: Dispatcher [employer] EDMS Martha Degroot, Reg Reg gb Isela Snider, RETAIL SALES ASSOCIATE SEASONAL RETAIL SALES ASSOCIATE SEASONAL Clayton Lopez, RN RN ml6 Brittany Owusu RN RN hs1 Amanda Jerez, GEOSPATIAL DEVELOPER GEOSPATIAL DEVELOPER tmm1 Brian BrownRN RN Dana RayRN RN nn1 Ceci Newton, Reg Reg hs2 Arjun Yee RT rs5 Chelita Rojas RN kas2 The chart was reviewed and I authenticate all verbal orders and agree with the evaluation and treatment provided.Corrections: (The following items were deleted from the chart) 18:58 18:51 Chest, 2 view (PA\E\Lat)+XR ordered. EDMS EDMS 19:56 19:43 LIVER PROFILE+LAB ordered. EDMS EDMS 20:12 19:43 ARTERIAL BLOOD GAS+LAB ordered. EDMS EDMS Attachments: 09/15 00:24 [facility] [place] Agreement hs2 10:34 T-Sheet-- Draft Copy gb 10:35 ECG/EKG gb Chart Complete MTDD
--- NOTE | 2016-09-17 01:19 | EDDOCDS ---
Physician Documentation [facility] Name: Sagrario Willoughby Age: 81 yrs Sex: Female : 1935 Arrival Date: 09/14/2016 Time: 18:15 Bed 21 Private MD: La Ling Disposition: 09/14 23:31 Critical Care: Critical care not applicable. le Disposition: 09/14/16 23:28 Discharged to Home/Self Care. Impression: Shortness of breath. - Condition is Stable. - Discharge Instructions: Shortness of Breath. - Medication Reconciliation, Local Pharmacy Hours form. - Follow up: La Ling; When: Call to arrange an appointment; Reason: Recheck today's complaints, Continuance of care. - Problem is new. - Symptoms have improved. - Notes: Return to the ED for any further concerns Historical: - Allergies: Codeine Sulfate; Iron (Ferrous Gluconate); Talwin; - Home Meds: 1. carbidopa-levodopa 25-100 mg Oral tab 0.5 tab 3 times per day 2. carbidopa-levodopa 25-100 mg Oral TbER 1 tab 3 times per day tapering dose getting stronger 3. loperamide 2 mg Oral tab 2 tabs 4. potassium chloride 10 mEq Oral cpER 2 caps 2 times per day 5. spironolactone 50 mg Oral tab 1 tab 2 times per day 6. nystatin 100,000 unit/gram Topical powd 3 times per day 7. venlafaxine 37.5 mg oral cp24 1 cap once daily 8. Mirapex 0.5 mg Oral tab 1 tab 9. Requip 2 mg Oral tab 3 tabs daily 10. acetaminophen 325 mg Oral tab 2 tabs every 4-6 hours 11. aspirin 325 mg Oral tab 1 tab once daily 12. Coricidin HBP 10-200 mg oral cap Unknown as needed 13. Voltaren 1 % topical gel 4 times per day 14. gabapentin 400 mg Oral cap daily 15. hydrocodone-acetaminophen 7.5-325 mg Oral tab 1 tab every 4 hours 16. Lidoderm 5 % Topical ptmd 1 patch once daily 17. Nitrostat 0.4 mg SL subl 1 tab every 5 minutes 18. trazodone 50 mg Oral tab 1 tab daily 19. Keppra 500 mg Oral tab 1 tab 2 times per day 20. simvastatin 20 mg Oral tab 1 tab once daily 21. atenolol 25 mg Oral tab 1 tab once daily - PMHx: edema; Epilepsy; Hypertension; Parkinson's Disease; paralysis agitans; - PSHx: Disc surgery; Cholecystectomy; Hysterectomy; low back surgery; c5 graft from hip; Cardiac stents; heart catherization; right achilles tendon lengthening; c8 fusion; - Social history: Smoking status: Patient states was never smoker of tobacco. No barriers to communication noted, The patient speaks fluent Turkish, Speaks appropriately for age. - Family history: Not pertinent. - : The pt / caregiver states he / she is not on anticoagulants. Home medication list is obtained from the facility MAR. - Exposure Risk Screening:: None identified. Vital Signs: 18:18 BP 157 / 81; Pulse 84; Resp 18 S; Temp 97.6(O); Pulse Ox 94% on R/A; Weight 104.33 kg / dd6 230.01 lbs (R); Height 5 ft. 5 in. (165.10 cm) (R); 19:01 Pulse 82 MON; kas2 19:01 Resp 18; Temp 97.9(O); Pain 0/10; kas2 19:02 BP 145 / 66 (auto/); kas2 19:17 BP 144 / 63 (auto/); kas2 19:17 Pulse 78 MON; Pulse Ox 96% ; kas2 19:32 BP 179 / 74 (auto/); kas2 19:32 Pulse 80 MON; Pulse Ox 95% ; kas2 20:32 BP 155 / 67 (auto/); kas2 20:32 Pulse 90 MON; Pulse Ox 93% ; kas2 21:11 BP 145 / 67 (auto/); kas2 21:11 Pulse 92 MON; Pulse Ox 95% ; kas2 21:32 BP 127 / 65 (auto/); kas2 21:32 Pulse 88 MON; Pulse Ox 94% ; kas2 22:02 BP 136 / 99 (auto/); kas2 22:02 Pulse 84 MON; Pulse Ox 94% ; kas2 22:32 BP 143 / 65 (auto/); kas2 22:32 Pulse 82 MON; Pulse Ox 94% ; kas2 23:33 BP 145 / 64; Pulse 85; Resp 18; Temp 98.9(TE); Pulse Ox 98% on R/A; Pain 0/10; zaid 18:18 Body Mass Index 38.27 (104.33 kg, 165.10 cm) dd6 MDM: 18:50 -Blood Culture (Adults Only), peripheral from different site, or from device/port/PICC ml6 etc. if present ordered. 18:50 If pre-RCE wait time >60 minutes, inform reg. staff to do full reg ordered. ml6 18:50 Undress patient appropriately for examination ordered. ml6 18:50 -Blood Culture Ordered. EDMS 18:50 -Influenza A&B Rapid Antigen - Nose Ordered. EDMS 18:50 BMP Ordered. EDMS 18:51 BNP Ordered. EDMS 18:51 CBC with Diff Ordered. EDMS 18:51 Cardiac Marker Panel Ordered. EDMS 18:51 ECG WITH READING ER PHYS+CARDIAG ordered. EDMS 18:58 Chest, 1 view Ordered. EDMS 19:37 BNP Reviewed. le 19:37 CBC with Diff Reviewed. le 19:37 Chest, 1 view Reviewed. le 19:39 BMP Reviewed. le 19:39 -Influenza A&B Rapid Antigen - Nose Reviewed. le 19:39 Cardiac Marker Panel Reviewed. le 19:40 D-Dimer Quant Ordered. EDMS 19:41 Albuterol-Ipratropium 3 ml Inhalation once ordered. le 19:41 Call Respiratory ordered. le 19:41 Call Respiratory ordered. le 19:43 Lactic Acid (Webb tube on ice) Ordered. EDMS 19:51 Call Respiratory complete. tmm1 19:52 Call Respiratory complete. tmm1 19:53 -Blood Culture (Adults Only), peripheral from different site, or from device/port/PICC tmm1 etc. if present complete. 19:53 BLOOD CULTURES Ordered. EDMS 19:56 LIVER PROFILE Ordered. EDMS 20:14 BMP Reviewed. le 20:14 D-Dimer Quant Reviewed. le 20:14 LIVER PROFILE Reviewed. le 20:14 Cardiac Marker Panel Reviewed. le 20:16 CT Chest Angio R/O PE Ordered. EDMS 21:25 Acetaminophen Tablet 650 mg PO once ordered. le 21:27 BED REQUEST+ADM ordered. EDMS 21:38 ALPRAZolam Tablet 0.5 mg PO once ordered. le 22:50 Ambulate Patient wth Pulse Oximetry ordered. le 09/15 00:08 Financial registration complete. hs2 00:24 [facility] Payment Agreement was scanned into [employer] and attached to record. hs2 10:34 T-Sheet-- Draft Copy was scanned into [employer] and attached to record. gb 10:35 ECG/EKG was scanned into [employer] and attached to record. gb 10:35 Radiology Report was scanned into [employer] and attached to record. gb Administered Medications: 09/14 20:04 Drug: Albuterol-Ipratropium 3 ml [ipratropium-albuterol 0.5 mg-3 mg(2.5 mg base)/3 mL rs5 nebulization soln (3 mL)] Route: Inhalation; 21:54 Drug: Acetaminophen 650 mg [acetaminophen 325 mg tablet (2 tabs)] Route: PO; kas2 21:54 Drug: ALPRAZolam 0.5 mg [alprazolam 0.25 mg tablet (2 tabs)] Route: PO; kas2 Signatures: Dispatcher [employer] EDMS Martha Degroot, Reg Reg gb Isela Snider, POWER DISTRIBUTOR POWER DISTRIBUTOR Clayton Lopez, RN RN ml6 Brittany Owusu RN RN hs1 Amanda Jerez, HURRICANE TRACKER HURRICANE TRACKER tmm1 Brian BrownRN RN Dana RayRN RN nn1 Ceci Newton, Reg Reg hs2 Arjun Yee RT rs5 Chelita Rojas RN kas2 The chart was reviewed and I authenticate all verbal orders and agree with the evaluation and treatment provided.Corrections: (The following items were deleted from the chart) 18:58 18:51 Chest, 2 view (PA\E\Lat)+XR ordered. EDMS EDMS 19:56 19:43 LIVER PROFILE+LAB ordered. EDMS EDMS 20:12 19:43 ARTERIAL BLOOD GAS+LAB ordered. EDMS EDMS Attachments: 09/15 00:24 [facility] [place] Payment Agreement hs2 10:34 T-Sheet-- Draft Copy gb 10:35 ECG/EKG gb Chart Complete MTDD
--- NOTE | 2016-09-17 01:19 | EDDOCDS ---
Nurse's Notes [facility] Name: Sagrario Valdes Age: 81 yrs Sex: Female : 1935 Arrival Date: 09/14/2016 Time: 18:15 Bed 21 Private MD: La Ling Diagnosis: Shortness of breath Presentation: 09/14 18:21 Presenting complaint: Patient states: [facility] concerned with decreasing oxygen hs1 level. Patient reports arm pain and headache recently decreased but was there this morning per patient. Adult Sepsis Screening: The patient does not have new or worsening altered mentation. Patient's respiratory rate is less than 22. Systolic blood pressure is greater than 100. Patient has a qSOFA score of 0- Negative Sepsis Screen. Suicide/Homicide risk assessment- the patient denies having any suicidal and/or homicidal ideations and does not present with any other emotional, behavioral or mental health complaints. Status: Patient is not a service parts coordinator or dependent. Transition of care: patient was not received from another setting of care. 18:21 Acuity: ZAID Level 3 hs1 18:21 Method Of Arrival: Walkin/Carried/Asstd hs1 Triage Assessment: 18:34 General: Appears in no apparent distress, Behavior is appropriate for age, cooperative. hs1 Pain: Denies pain. Neurological: No deficits noted. Respiratory: Onset: The symptoms/episode began/occurred yesterday, Reports shortness of breath. Derm: Skin is pink, warm & dry. normal. Historical: - Allergies: Codeine Sulfate; Iron (Ferrous Gluconate); Talwin; - Home Meds: 1. carbidopa-levodopa 25-100 mg Oral tab 0.5 tab 3 times per day 2. carbidopa-levodopa 25-100 mg Oral TbER 1 tab 3 times per day tapering dose getting stronger 3. loperamide 2 mg Oral tab 2 tabs 4. potassium chloride 10 mEq Oral cpER 2 caps 2 times per day 5. spironolactone 50 mg Oral tab 1 tab 2 times per day 6. nystatin 100,000 unit/gram Topical powd 3 times per day 7. venlafaxine 37.5 mg oral cp24 1 cap once daily 8. Mirapex 0.5 mg Oral tab 1 tab 9. Requip 2 mg Oral tab 3 tabs daily 10. acetaminophen 325 mg Oral tab 2 tabs every 4-6 hours 11. aspirin 325 mg Oral tab 1 tab once daily 12. Coricidin HBP 10-200 mg oral cap Unknown as needed 13. Voltaren 1 % topical gel 4 times per day 14. gabapentin 400 mg Oral cap daily 15. hydrocodone-acetaminophen 7.5-325 mg Oral tab 1 tab every 4 hours 16. Lidoderm 5 % Topical ptmd 1 patch once daily 17. Nitrostat 0.4 mg SL subl 1 tab every 5 minutes 18. trazodone 50 mg Oral tab 1 tab daily 19. Keppra 500 mg Oral tab 1 tab 2 times per day 20. simvastatin 20 mg Oral tab 1 tab once daily 21. atenolol 25 mg Oral tab 1 tab once daily - PMHx: edema; Epilepsy; Hypertension; Parkinson's Disease; paralysis agitans; - PSHx: Disc surgery; Cholecystectomy; Hysterectomy; low back surgery; c5 graft from hip; Cardiac stents; heart catherization; right achilles tendon lengthening; c8 fusion; - Social history: Smoking status: Patient states was never smoker of tobacco. No barriers to communication noted, The patient speaks fluent Gabonese, Speaks appropriately for age. - Family history: Not pertinent. - : The pt / caregiver states he / she is not on anticoagulants. Home medication list is obtained from the facility MAR. - Exposure Risk Screening:: None identified. Screenin:06 Screening information is obtained from the patient. Fall risk: At risk due to age. jmb Assistance ADL's: requires no assistance with activities of daily living. Abuse/DV Screen: The patient / caregiver reports he/she is: not in a situation that causes fear, pain or injury. Nutritional screening: No deficits noted. home support is adequate. 09/15 00:17 Advance Directives: There is an active DNR order and the pt has a copy here at this nn1 time. Assessment: 09/14 19:02 General: Verbal report given by Quintin Benton RN. Assumed care of patient at this time.. kas2 19:06 General: Appears in no apparent distress, comfortable, Behavior is appropriate for age, jmb cooperative. Pain: Denies pain. Neurological: Level of Consciousness is awake, alert, obeys commands, Oriented to person, place, time, Cloth Sponger are weak bilaterally Speech is normal, Facial symmetry appears normal, Facial symmetry: tongue is midline. Cardiovascular: Capillary refill < 3 seconds Heart tones present Pulses are all present. Rhythm is regular. Respiratory: Airway is patent Respiratory effort is even, unlabored, Respiratory pattern is regular, symmetrical, Breath sounds are diminished bilaterally. GI: Abdomen is obese, Bowel sounds present X 4 quads. Abd is soft X 4 quads. Derm: Skin is pink, warm & dry. Musculoskeletal: Range of motion intact in all extremities. 19:49 General: Appears in no apparent distress, comfortable, well nourished, well groomed, kas2 Behavior is appropriate for age, cooperative. Pain: Denies pain. Neurological: Level of Consciousness is awake, alert, obeys commands, Oriented to person, place, time. Cardiovascular: Capillary refill < 3 seconds Heart tones S1 S2 present Rhythm is sinus rhythm No ectopy. Respiratory: Airway is patent Respiratory effort is even, unlabored, Respiratory pattern is regular, symmetrical, Breath sounds are diminished bilaterally. Derm: Skin is intact, is healthy with good turgor, Skin is dry, Skin is pink, warm & dry. Skin temperature is warm. Musculoskeletal: Range of motion intact in all extremities. 20:38 General: Patient resting in bed with family at bedside. Denies pain or discomfort. No kas2 distress noted. Airway patent and respiratory effort even and unlabored. Call cruz within reach. Will continue to monitor.. 21:15 General: Patient very anxious and not wanting CT scan and thinking about leaving. RN kas2 and daughter talked patient in to staying and calmed her down. Isela Ch MANAGER FURNITURE aware. Meds ordered. . 22:00 General: Patient gone to CT scan via hospital bed with RN. kas2 22:21 General: Patient back from CT scan via hospital bed with RN. Resettled in bed. No kas2 apparent distress noted. VSS. Daughter at bedside. Appears comfortable. Call cruz within reach. Will continue to monitor.. 22:42 General: Appears in no apparent distress, comfortable, Behavior is appropriate for age, kas2 cooperative. Pain: Denies pain. Neurological: Level of Consciousness is awake, alert, Oriented to person, place, time. Respiratory: Airway is patent Respiratory effort is even, unlabored, Respiratory pattern is regular, symmetrical. Derm: Skin is intact, Skin is dry, Skin is pink, warm & dry. Skin temperature is warm. Vital Signs: 18:18 BP 157 / 81; Pulse 84; Resp 18 S; Temp 97.6(O); Pulse Ox 94% on R/A; Weight 104.33 kg dd6 (R); Height 5 ft. 5 in. (165.10 cm) (R); 19:01 Pulse 82 MON; kas2 19:01 Resp 18; Temp 97.9(O); Pain 0/10; kas2 19:02 BP 145 / 66 (auto/); kas2 19:17 BP 144 / 63 (auto/); kas2 19:17 Pulse 78 MON; Pulse Ox 96% ; kas2 19:32 BP 179 / 74 (auto/); kas2 19:32 Pulse 80 MON; Pulse Ox 95% ; kas2 20:32 BP 155 / 67 (auto/); kas2 20:32 Pulse 90 MON; Pulse Ox 93% ; kas2 21:11 BP 145 / 67 (auto/); kas2 21:11 Pulse 92 MON; Pulse Ox 95% ; kas2 21:32 BP 127 / 65 (auto/); kas2 21:32 Pulse 88 MON; Pulse Ox 94% ; kas2 22:02 BP 136 / 99 (auto/); kas2 22:02 Pulse 84 MON; Pulse Ox 94% ; kas2 22:32 BP 143 / 65 (auto/); kas2 22:32 Pulse 82 MON; Pulse Ox 94% ; kas2 23:33 BP 145 / 64; Pulse 85; Resp 18; Temp 98.9(TE); Pulse Ox 98% on R/A; Pain 0/10; zaid 18:18 Body Mass Index 38.27 (104.33 kg, 165.10 cm) dd6 Vitals: 18:18 Log In Time: September 14, 2016 at 18:16. dd6 ED Course: 18:17 Patient visited by Elia Edmondson PCA. dd6 18:17 Patient moved to Waiting dd6 18:18 La Ling is Private Physician. dd6 18:19 Patient moved to Pre RCE dd6 18:22 Triage Initiated hs1 18:36 Patient moved to 21 hs1 18:57 Chelita Rojas,RN is Primary Nurse. kas2 19:06 Patient visited by Chelita Rojas RN. kas2 19:06 The patient / caregiver is instructed regarding the plan of care and ED course. Cardiac jmb monitor on. Pulse ox on. NIBP on. 19:06 -Blood Culture Sent. jmb 19:06 -Influenza A&B Rapid Antigen - Nose Sent. jmb 19:06 Inserted saline lock: 20 gauge in left antecubital area and blood collected. The jmb patient tolerated the procedure well. Labs drawn. (by ED staff). Sent per order to lab. Labs/Blood culture drawn. 19:08 Patient visited by Brian Brown RN. jmsherwin 19:16 Patient visited by Rose Herndon PCA. zaid 19:16 Pt greeted and oriented to ED. Patient advised of names of staff involved in care, zaid location of call cruz, wait times and NPO status. Accompanied by Family Member, Patient has correct armband on for positive identification. Placed in gown. Bed in low position. Call light in reach. Side rails up X2. 19:16 Chest, 1 view Returned. EDMS 19:16 EKG done. (by ED staff). Reviewed by Rayo Portillo DO. zaid 19:21 Isela Snider FNP is PHCP. le 19:38 Patient visited by Isela Snider FNP. le 19:40 Patient visited by Isela Snider FNP. le 19:49 D-Dimer Quant Sent. kas2 19:50 Patient visited by Chelita Rjoas RN. kas2 20:12 Lactic Acid (Webb tube on ice) Sent. kas2 20:12 BLOOD CULTURES Sent. kas2 20:12 No procedures done that require assistance. Labs drawn. (by ED staff). Sent per order kas2 to lab. 20:13 Patient visited by Chelita Rojas RN. kas2 20:40 Patient visited by Chelita Rojas RN. kas2 21:15 Patient visited by Chelita Rojas RN. kas2 21:54 Patient visited by Chelita Rojas RN. kas2 22:08 EKG-ADULT Returned. EDMS 22:23 Patient visited by Chelita Rojas RN. kas2 22:46 Patient visited by Chelita Rojas RN. kas2 22:59 CT Chest Angio R/O PE Returned. EDMS 23:28 La Ling is Referral Physician. le 23:33 Patient visited by Rose Herndon PCA. zaid 09/15 00:24 [facility] Payment Agreement was scanned into [employer] and attached to record. hs2 10:34 T-Sheet-- Draft Copy was scanned into [employer] and attached to record. gb 10:35 ECG/EKG was scanned into [employer] and attached to record. gb 10:35 Radiology Report was scanned into [employer] and attached to record. gb Administered Medications: 09/14 20:04 Drug: Albuterol-Ipratropium 3 ml [ipratropium-albuterol 0.5 mg-3 mg(2.5 mg base)/3 mL rs5 nebulization soln (3 mL)] Route: Inhalation; 21:54 Drug: Acetaminophen 650 mg [acetaminophen 325 mg tablet (2 tabs)] Route: PO; kas2 21:54 Drug: ALPRAZolam 0.5 mg [alprazolam 0.25 mg tablet (2 tabs)] Route: PO; kas2 RT: 20:04 Initial Med Neb Given as ordered Patient was instructed and evaluated on procedure rs5 Patient tolerated procedure well without adverse effect. Respiratory: Respiratory effort is even, unlabored, Respiratory pattern is regular symmetrical, Reports pt says she is breathing fine. 20:07 ABG's Patient Refused ABG. rs5 Order Results: Lab Order: -Blood Culture; SPEC'M 09/14/16 18:55 Test: BLOOD CULTURE; Value: No growth after 24 hours . All specimens observed; Status: F Test: BLOOD CULTURE; Value: for 5 days. Results final at that time.; Status: F Test: BLOOD CULTURE; Value: No Growth after 48 hours. All Specimens observed; Status: F Test: BLOOD CULTURE; Value: for 7 days. Results final at that time.; Status: F Lab Order: -Influenza A&B Rapid Antigen - Nose; SPEC'M 09/14/16 18:55 Test: INFLUENZA A RAPID SCR by ICA; Value: INFLUENZA A RESULTS NEGATIVE; Status: F Test: INFLUENZA A RAPID SCR by ICA; Value: Comments:; Status: F Test: INFLUENZA B RAPID SCR by ICA; Value: INFLUENZA B RESULTS NEGATIVE; Status: F Test Note: ; The Influenza test is a direct rapid immunoassay for the qualitative detection of Influenza viral antigen. Cell culture (Viral Culture) testing should be considered to confirm NEGATIVE results and to assist in detecting other viruses that can provide similar clinical symptoms. Please contact the lab within 24 hours ([phone]) if confirmatory testing is desired. Lab Order: SEBASTIAN; SPEC'M 09/14/16 18:55 Test: GLUCOSE, FASTING; Value: 96; Range: 83-110; Units: MG/DL; Status: F Test: BLOOD UREA NITROGEN; Value: 19; Range: 7-18; Abnormal: Above high normal; Units: MG/DL; Status: F Test: CREATININE FOR GFR; Value: 0.88; Range: 0.55-1.02; Units: MG/DL; Status: F Test: GLOMERULAR FILTRATION RATE; Value: > 60.0; Range: >32; Status: F Test: SODIUM LEVEL; Value: 138; Range: 136-145; Units: MEQ/L; Status: F Test: POTASSIUM SERUM; Value: 4.4; Range: 3.5-5.1; Units: MEQ/L; Status: F Test: CHLORIDE LEVEL; Value: 99; Range: 98-107; Units: MEQ/L; Status: F Test: CARBON DIOXIDE LEVEL; Value: 31; Range: 21-32; Units: MEQ/L; Status: F Test: ANION GAP; Value: 8; Range: 8-16; Units: MEQ/L; Status: F Test: CALCIUM LEVEL; Value: 8.9; Range: 8.8-10.2; Units: MG/DL; Status: F Test Note: ; Units are mL/min/1.73 m2 Chronic Kidney Disease Staging per NKF: Stage I & II GFR >=60 Normal to Mildly Decreased Stage III GFR 30-59 Moderately Decreased Stage IV GFR 15-29 Severely Decreased Stage V GFR <15 Very Little GFR Left ESRD GFR <15 on CLERK CHECKER Test: AST/SGOT; Range: 15-37; Units: U/L; Status: I Test: ALT/SGPT; Range: 12-78; Units: U/L; Status: I Test: ALKALINE PHOSPHATASE; Range: 45-117; Units: U/L; Status: I Test: BILIRUBIN,TOTAL; Range: 0.2-1.0; Units: MG/DL; Status: I Test: BILIRUBIN,DIRECT; Range: 0.0-0.2; Units: MG/DL; Status: I Test: TOTAL PROTEIN; Range: 6.4-8.2; Units: GM/DL; Status: I Test: ALBUMIN; Range: 3.2-5.2; Units: GM/DL; Status: I Test: ALBUMIN/GLOBULIN RATIO; Range: 1.00-1.93; Status: I Lab Order: BNP; SPEC'M 09/14/16:55 Test: BRAIN NATRIURETIC PEPTIDE; Value: 204; Range: <100; Abnormal: Above high normal; Units: PG/ML; Status: F Lab Order: CBC with Diff; SPEC'M 09/14/16 18:55 Test: WHITE BLOOD COUNT; Value: 9.8; Range: 4.0-10.0; Units: K/mm3; Status: F Test: RED BLOOD COUNT; Value: 4.36; Range: 4.00-5.40; Units: M/mm3; Status: F Test: HEMOGLOBIN; Value: 13.7; Range: 12.0-16.0; Units: g/dl; Status: F Test: HEMATOCRIT; Value: 41.6; Range: 36.0-47.0; Units: %; Status: F Test: MEAN CORPUSCULAR VOLUME; Value: 95.5; Range: 80.0-96.0; Units: fl; Status: F Test: MEAN CORPUSCULAR HEMOGLOBIN; Value: 31.5; Range: 27.0-33.0; Units: pg; Status: F Test: MEAN CORPUSCULAR HGB CONC; Value: 33.0; Range: 32.0-36.5; Units: g/dl; Status: F Test: RED CELL DISTRIBUTION WIDTH; Value: 13.2; Range: 11.5-14.5; Units: %; Status: F Test: PLATELET COUNT, AUTOMATED; Value: 228; Range: 150-450; Units: k/mm3; Status: F Test: NEUTROPHILS %; Value: 81.2; Range: 36.0-66.0; Abnormal: Above high normal; Units: %; Status: F Test: LYMPH %; Value: 10.1; Range: 24.0-44.0; Abnormal: Below low normal; Units: %; Status: F Test: MONO %; Value: 5.6; Range: 0.0-5.0; Abnormal: Above high normal; Units: %; Status: F Test: EOS %; Value: 1.1; Range: 0.0-3.0; Units: %; Status: F Test: BASO %; Value: 1.3; Range: 0.0-1.0; Abnormal: Above high normal; Units: %; Status: F Test: LARGE UNSTAINED CELL %; Value: 0.7; Range: 0.0-4.0; Units: %; Status: F Test: NEUTROPHILS #; Value: 7.9; Range: 1.8-7.7; Abnormal: Above high normal; Units: K/mm3; Status: F Test: LYMPH #; Value: 1.0; Range: 1.5-4.5; Abnormal: Below low normal; Units: K/mm3; Status: F Test: MONO #; Value: 0.6; Range: 0.0-0.8; Units: K/mm3; Status: F Test: EOS #; Value: 0.1; Range: 0.0-0.50; Units: K/mm3; Status: F Test: BASO #; Value: 0.1; Range: 0.0-0.2; Units: K/mm3; Status: F Test: LARGE UNSTAINED CELL #; Value: 0.1; Range: 0.0-0.4; Units: K/mm3; Status: F Lab Order: Cardiac Marker Panel; SPEC'M 09/14/16 18:55 Test: CPK CREATINE PHOSPHOKINASE; Value: 74; Range: 26-192; Units: U/L; Status: F Test: CK-MB VALUE MASS; Value: 1.0; Range: 0.0-3.6; Units: NG/ML; Status: F Test: MB/CK RELATIVE INDEX; Value: 1.35; Range: < OR =4; Status: F Test: TROPONIN I; Value: < 0.02; Range: < 0.10; Units: NG/ML; Status: F Test Note: ; DIAGNOSIS CRITERIA MMB ng/ml Relative Index (RI) NON-AMI < or = 5 N/A WEBB ZONE > 5 < or = 4 AMI > 5 > 4 Lab Order: D-Dimer Quant; SPEC'M 09/14/16 19:35 Test: D-DIMER QUANT; Value: 894.2; Range: <500; Abnormal: Above high normal; Units: ng/ml; Status: F Lab Order: Lactic Acid (Webb tube on ice); SPEC'M 09/14/16 20:07 Test: LACTIC ACID LEVEL, LACTATE; Value: 1.2; Range: 0.4-2.0; Units: MMOL/L; Status: F Lab Order: BLOOD CULTURES; SPEC'M 09/14/16 20:07 Test: BLOOD CULTURE; Value: No growth after 24 hours . All specimens observed; Status: F Test: BLOOD CULTURE; Value: for 5 days. Results final at that time.; Status: F Test: BLOOD CULTURE; Value: No Growth after 48 hours. All Specimens observed; Status: F Test: BLOOD CULTURE; Value: for 7 days. Results final at that time.; Status: F Lab Order: LIVER PROFILE; SPEC'M 09/14/16 18:55 Test: AST/SGOT; Value: 16; Range: 15-37; Units: U/L; Status: F Test: ALT/SGPT; Value: 8; Range: 12-78; Abnormal: Below low normal; Units: U/L; Status: F Test: ALKALINE PHOSPHATASE; Value: 121; Range: 45-117; Abnormal: Above high normal; Units: U/L; Status: F Test: BILIRUBIN,TOTAL; Value: 0.9; Range: 0.2-1.0; Units: MG/DL; Status: F Test: BILIRUBIN,DIRECT; Value: 0.3; Range: 0.0-0.2; Abnormal: Above high normal; Units: MG/DL; Status: F Test: TOTAL PROTEIN; Value: 6.7; Range: 6.4-8.2; Units: GM/DL; Status: F Test: ALBUMIN; Value: 3.7; Range: 3.2-5.2; Units: GM/DL; Status: F Test: ALBUMIN/GLOBULIN RATIO; Value: 1.23; Range: 1.00-1.93; Status: F Radiology Order: EKG-ADULT Test: EKG-ADULT REASON FOR EXAMINATION: Shortness of Breath; Stationary ECG Study; [facility] - ED; ; Test Date: 2016-09-14; Pat Name: SAGRARIO VALDES Department:; Room: -; Gender: F Mountain Bike Guide: abimbola; : 1935 Requested By: Jerome Wasserman; Order Number: [id number] Reading MD: Ye Hickman; Measurements; Intervals [place]; Rate: 79 P:; MT: 0 QRS: 13; QRSD: 80 T: 33; QT: 349; QTc: 400; Interpretive Statements; SINUS RHYTHM; ; Electronically Signed On 09-14-2016 22:04:23 EST by Ye Hickman; Radiology Order: Chest, 1 view Test: Chest, 1 view REASON FOR EXAMINATION: Shortness of Breath; Chest one-view; ; HISTORY: Shortness of breath; ; Comparison: 02/09/2016; ; The lungs are clear. The heart is normal in size. The pulmonary vasculature is; normal in appearance.; ; Impression: No acute disease.; ; ; Signed by; Favian Abad MD 09/14/2016 07:07 P; Radiology Order: CT Chest Angio R/O PE Test: CT Chest Angio R/O PE REASON FOR EXAMINATION: Shortness of Breath; ; CT angiogram of the chest; Clinical statement: Chest pain and shortness of breath.; Technique: Multiple axial CT images were obtained from the thoracic inlet through the upper abdomen a; fter a bolus administration of nonionic intravenous contrast. Coronal and sagittal reconstructions we; re also obtained.; No comparison is available.; Findings: The pulmonary arteries are well-opacified with contrast, with no intraluminal filling defec; ts to suggest embolism. The thoracic aorta is unremarkable. Thyroid gland is within normal limits. Th; ere is no thoracic lymphadenopathy. There are no pericardial or pleural effusions. The lungs are marcie; r. Limited imaging of the upper abdomen is unremarkable. There are no suspicious osseous lesions.; Impression: Unremarkable CT examination of the chest. No evidence of pulmonary embolism.; ; Outcome: 23:28 Discharge ordered by Provider. le 09/15 00:14 Discharge Assessment: Patient awake, alert and oriented x 3. No cognitive and/or nn1 functional deficits noted. Patient verbalized understanding of disposition instructions. 00:14 Discharge Assessment: patient administered narcotics - no. The following High Risk nn1 Discharge criteria are identified: None. Discharged to home via wheelchair, with family. Condition: stable Condition: improved. CT Study completed. Property :Personal belongings accompany Pt. 00:16 Discharged to half-way. Report called to EDUARDO Ballard Patient taken back to [facility] by mona1 catherine LUI. [place] notified. 00:17 Patient left the ED. nn1 Signatures: Dispatcher [employer] EDMS Martha Degroot, Reg Reg gb AgathaIsela gutierrez, MANAGER FURNITURE MANAGER FURNITURE Elia Collier, INSIDE SALES SUPERVISOR INSIDE SALES SUPERVISOR dd6 Brittany Owusu, RN RN hs1 Rose Herndon, INSIDE SALES SUPERVISOR INSIDE SALES SUPERVISOR zaid Arjun Yee,RT RT rs5 Brian Brown,RN RN aDna RayRN RN nn1 Ceci Newton, Reg Reg hs2 Chelita Rojas,RN RN [facility] Corrections: (The following items were deleted from the chart) 09/14 19:56 19:49 LIVER PROFILE+LAB sent. [facility] EDMS 20:07 20:04 ABG's drawn from left radial artery allens test done and positive pressure held rs5 for 5 minutes no bleeding noted pressure bandage applied specimen sent pt. tolerated well rs5 20:12 20:04 ARTERIAL BLOOD GAS+LAB sent. rs5 EDMS Chart Complete MTDD
== END 2016-09-15 00:17 | disposition home or self-care (01) ==
LOC: M ED 18:15
DX: R06.02 Shortness of breath (principal); I10 Essential (primary) hypertension; R60.0 Localized edema; G40.909 Epilepsy, unspecified, not intractable, without status epilepticus; G20 Parkinson's disease; Z95.5 Presence of coronary angioplasty implant and graft; Z79.899 Other long term (current) drug therapy; Z79.82 Long term (current) use of aspirin; Z88.2 Allergy status to sulfonamides; Z88.5 Allergy status to narcotic agent; Z88.8 Allergy status to other drugs, medicaments and biological substances
CPT/HCPCS: 36415; 71010; 71275; 80048; 80076; 82550; 82553; 83605; 83880; 84484; 85025; 85379; 87040; 87804; 93005; 94640; 99285; Q9967

== ENCOUNTER 2016-10-20 13:32 | Inpatient (IN) | payer MEDICARE ==
[~2016-10-20] VITALS: Ht 160 cm; Wt 100.7 kg
[~2016-10-20 13:32] MED LIST changes: +ACET-654 PO; +ASPI81TAEC PO; +ATEN25TA PO; +CARB25TA PO; +CORITAB5 PO; +GABA-283 PO; +HYDR-3716 PO; +KEPP500T6 PO; +LIDO5DIS36 TOP; +LOPE2CA PO; +MIRA0.5T PO; +NITR4TASL SL; +NYST100024 TOP; +POTA10CA PO; +SIMV20TA2 PO; +SINE25TACR PO; +SPIR50TA2 PO; +TRAZ50TA4 PO; +VENL37TA PO; +VOLT1GEL24 TOP; +[UNRECOGNIZED DRUG - CODE] PO
--- NOTE | 2016-10-20 15:23 | REP ---
PORTABLE CHEST, ONE VIEW: HISTORY: Cough. COMPARISON: 09/14/2016 Linear densities are present in the left lower lobe consistent with atelectasis or scar. The right lung is clear. The heart is normal in size. The pulmonary vasculature is normal in appearance. IMPRESSION: Left lower lobe atelectasis or scar. Signed by Favian Abad MD 10/20/2016 03:48 P
[2016-10-20 15:25] LABS: BASO % 0.1 % (0.0-1.0); EOS # 0.2 K/mm3 (0.0-0.50); LARGE UNSTAINED CELL # 0.1 K/mm3 (0.0-0.4); LARGE UNSTAINED CELL % 0.3 % (0.0-4.0); LYMPH # 0.6 K/mm3 (1.5-4.5); MEAN CORPUSCULAR HEMOGLOBIN 31.9 pg (27.0-33.0); MEAN CORPUSCULAR HGB CONC 32.9 g/dl (32.0-36.5); MEAN CORPUSCULAR VOLUME 96.9 fl (80.0-96.0); MONO % 5.7 % (0.0-5.0); NEUTROPHILS # 15.3 K/mm3 (1.8-7.7); NEUTROPHILS % 89.7 % (36.0-66.0); PLATELET COUNT, AUTOMATED 280 k/mm3 (150-450); RED CELL DISTRIBUTION WIDTH 12.4 % (11.5-14.5)
[2016-10-20 15:28] LABS: INR 1.01
--- NOTE | 2016-10-20 15:29 | REP ---
RIGHT SHOULDER, THREE VIEWS: HISTORY: Cough. There is no acute fracture or dislocation. There is narrowing of the joint spaces with associated osteophyte formation. IMPRESSION: Degenerative change as described above. LEFT SHOULDER, THREE VIEWS: There is no acute fracture or dislocation. There is narrowing of the joint spaces. Osteophytes are present at the acromioclavicular joint. Calcification is present superior to the acromioclavicular joint. This represents ligamentous or tendon calcification. IMPRESSION: Degenerative change as described above. Signed by Favian Abad MD 10/20/2016 03:49 P
[2016-10-20 15:56] LABS: ALBUMIN 3.4 GM/DL (3.2-5.2); ALBUMIN/GLOBULIN RATIO 1.06 (1.00-1.93); ALKALINE PHOSPHATASE 104 U/L (45-117); ALT/SGPT 7 U/L (12-78); ANION GAP 6 MEQ/L (8-16); AST/SGOT 12 U/L (15-37); BILIRUBIN,DIRECT 0.3 MG/DL (0.0-0.2); BILIRUBIN,TOTAL 0.9 MG/DL (0.2-1.0); BLOOD UREA NITROGEN 23 MG/DL (7-18); CALCIUM LEVEL 8.9 MG/DL (8.8-10.2); CARBON DIOXIDE LEVEL 31 MEQ/L (21-32); CHLORIDE LEVEL 98 MEQ/L (98-107); CREATININE FOR GFR 1.35 MG/DL (0.55-1.02); GLOMERULAR FILTRATION RATE 40.1 (>32); GLUCOSE, FASTING 153 MG/DL (83-110); POTASSIUM SERUM 4.7 MEQ/L (3.5-5.1); SODIUM LEVEL 135 MEQ/L (136-145); TOTAL PROTEIN 6.6 GM/DL (6.4-8.2)
[2016-10-20] MEDS ORDERED: ISOVUE-370 76% 100ML VIAL (Q9967) As Ordered ONE (17:10)
--- NOTE | 2016-10-20 18:38 | REP ---
CT ANGIO CHEST: HISTORY: Rule out pulmonary embolism. CONTRAST: Isovue-370, 75 mL. The examination is very limited secondary to motion. There is no definite pulmonary embolism in the main pulmonary artery or proximal right and left pulmonary arteries. The distal branches are poorly seen. Patchy density is present in the lower lobes consistent with bibasilar atelectasis or infiltrates. There is no pleural effusion. There is no mediastinal mass. Atherosclerotic calcification is present in the thoracic aorta. Degenerative change is present in the thoracic spine. IMPRESSION: Limited examination demonstrating no definite pulmonary embolism in the main or proximal right and left pulmonary arteries. Bibasilar atelectasis or infiltrates. Signed by Favian Abad MD 10/20/2016 06:40 P
[2016-10-20] MEDS ORDERED: cefTRIAXone SOD 1 GM in D5W MINI-BAG PLUS 50 ML IV ONE (18:45)
[2016-10-20] MEDS ORDERED: ALBU83IN INH (19:28)
[2016-10-20] MEDS ORDERED: HYDR-3713 PO (19:28)
[2016-10-20] MEDS ORDERED: PROA1AER INH (19:28)
[2016-10-20] MEDS ORDERED: KLOR1CAP2 PO ×2 (19:38→19:55)
[2016-10-20] MEDS ORDERED: SINE25TACR PO ×3 (19:38→19:45)
[2016-10-20] MEDS ORDERED: CARB25TA PO (19:43)
[2016-10-20] MEDS ORDERED: ASPI325T PO (19:53)
[2016-10-20] MEDS ORDERED: LIDOCAINE 5% (LIDODERM) PATCH TOP PRN (21:00)
[2016-10-20] MEDS ORDERED: NORCO, ANEXSIA 5/325MG TABLET (HYDROcodone/ACETAMINOPHEN) PO PRN (21:00)
[2016-10-20] MEDS ORDERED: **NOTE PATIENT COMMENT** MISC XX PRN (21:00)
[2016-10-20] MEDS ORDERED: NYSTATIN 100,000 UNITS/GM TOPICAL PWD 15 GM TOP PRN (21:00)
[2016-10-20 22:48] VITALS: BP 144/63
[2016-10-21] VITALS (10 sets, daily range): BP systolic 118–153; BP diastolic 57–96; O2SAT 87–97
[2016-10-21] MEDS: traZODone 50 MG TAB PO SCH ×2 (00:19→21:22)
[2016-10-21] MEDS: rOPINIRole 1MG TAB PO SCH ×2 (00:19→21:21)
[2016-10-21] MEDS: SIMVASTATIN 20 MG TAB PO SCH ×2 (00:19→21:22)
[2016-10-21] MEDS: levETIRAcetam 250MG TABLET (KEPPRA) PO SCH ×3 (00:20→21:22)
[2016-10-21] MEDS: SINEMET**CR** 25/100 TABCR PO SCH ×7 (00:20→21:22)
[2016-10-21] MEDS: SPIRONOLACTONE 50 MG TAB PO SCH ×3 (00:20→21:22)
[2016-10-21] MEDS: GABAPENTIN 400 MG CAP PO SCH ×2 (00:20→21:22)
[2016-10-21] MEDS: ATENOLOL 25 MG TAB PO SCH ×2 (00:20→21:22)
[2016-10-21] MEDS: ACETAMINOPHEN TAB 650MG DOSE (2X325MG) PO PRN ×2 (00:26→13:52)
--- NOTE | 2016-10-21 02:39 | HPE ---
DATE OF ADMISSION: 10/20/2016 PRIMARY CARE PROVIDER: Dr. Ulloa HISTORY OF PRESENT ILLNESS: Patient is an 81-year-old female with history of back and shoulder pain, Parkinson's disease, hypertension, hyperlipidemia, CAD, who presented to the emergency room complaining of hypoxia which she has had in the past. The patient states that she was getting dressed when she started to get short of breath. She was brought over by the ambulance to the hospital. She was found to have oxygen levels in the 80s. She was started on oxygen four liters and her symptoms had improved. CT angiogram showed no emboli, bibasilar atelectasis or infiltrate. She was given one dose of ceftriaxone in the emergency room and she was admitted under hospitalist service for pneumonia. REVIEW OF SYSTEMS: 12-point review of systems was obtained all of which was negative except for those mentioned above. PAST MEDICAL HISTORY: Significant for back pain, shoulder pain, Parkinson's disease, hypertension, hyperlipidemia, history of seizures, CAD. PAST SURGICAL HISTORY: Significant for hysterectomy, mastectomy, cholecystectomy, bilateral foot surgeries, cervical spine fusion and cardiac stents. ALLERGIES: IRON, reaction diarrhea. SOCIAL HISTORY: Patient is from [place] [facility]. Denies alcohol or tobacco use. FAMILY HISTORY: Noncontributory. HOME MEDICATIONS: Include - albuterol sulfate - ProAir - loperamide - nitroglycerin - Tylenol one tab by mouth every four hours as needed for pain - aspirin 325 mg by mouth daily - atenolol 25 mg by mouth at bedtime - carbidopa/levadopa - gabapentin 400 mg at bedtime - Keppra 59 mg by mouth twice a day - lidocaine patch daily - nystatin powder topical as needed for rash - pramipexole 0.5 mg daily - Requip 4 mg by mouth at bedtime - simvastatin 20 mg by mouth at bedtime - Aldactone 50 mg by mouth three times a day - trazodone 50 mg at bedtime - Effexor 37.5 mg by mouth daily FAMILY HISTORY: Noncontributory. PHYSICAL FINDINGS: Blood pressure on admission 140/62, pulse 62, temperature 98.3, pulse ox 94% on room air. HEENT: Pupils equal, round, reactive to light and accommodation. NECK: Supple. No jugular venous distention. LUNGS: Clear to auscultation bilaterally. ABDOMEN: Soft, nontender, nondistended. EXTREMITIES: +2 edema bilaterally around the ankles. LABORATORY FINDINGS: WBCs 17, hemoglobin 12.7, hematocrit 38.5, platelet count 280. Sodium 134, potassium 4.7, BUN 23, creatinine 1.35, lactic acid 1, troponin less than 0.02, BNP 160, INR 1.01. ASSESSMENT AND PLAN: 1. Pneumonia. We will continue ceftriaxone. Continue oxygen. We will order nocturnal pulse oximetry. Per daughter's request, the patient has been having shortness of breath over a long time and she was wondering if her mother would qualify for home oxygen. We will order nocturnal pulse oximetry and in the morning we will ambulate without oxygen to see if the patient would qualify for home O2. 2. Leukocytosis likely secondary to number one. 3. History of a Parkinson's. We will continue the patient's home medication. 4. Hypertension. Continue the patient's home medication. 5. History of coronary artery disease status post stent. 6. History of back pain. We will continue the patient's lidocaine patch as well as her hydrocodone. 7. DVT prophylaxis. TEDs and sequentials.
[2016-10-21] MEDS ORDERED: SLF 3 ML SYR IV PRN (03:30)
[2016-10-21] MEDS: cefTRIAXone SOD 1 GM in D5W MINI-BAG PLUS 50 ML IV SCH ×2 (05:24→18:31)
[2016-10-21] MEDS: SINEMET 25-100 MG TAB PO SCH ×2 (05:25→09:31)
[2016-10-21] MEDS: PRAMIPEXOLE 0.25 MG TAB PO SCH (05:25)
[2016-10-21] MEDS: SLF 3 ML SYR IV SCH ×2 (05:25→13:05)
[2016-10-21] MEDS ORDERED: ONDANSETRON 4 MG TAB (S0181) PO PRN (06:00)
[2016-10-21 07:38] LABS: BASO % 0.2 % (0.0-1.0); EOS # 0.2 K/mm3 (0.0-0.50); EOS % 1.1 % (0.0-3.0); LARGE UNSTAINED CELL # 0.1 K/mm3 (0.0-0.4); LARGE UNSTAINED CELL % 0.8 % (0.0-4.0); LYMPH # 0.4 K/mm3 (1.5-4.5); LYMPH % 2.5 % (24.0-44.0); MEAN CORPUSCULAR HEMOGLOBIN 31.6 pg (27.0-33.0); MEAN CORPUSCULAR HGB CONC 33.6 g/dl (32.0-36.5); MEAN CORPUSCULAR VOLUME 94.2 fl (80.0-96.0); MONO # 0.6 K/mm3 (0.0-0.8); MONO % 4.1 % (0.0-5.0); NEUTROPHILS # 13.4 K/mm3 (1.8-7.7); NEUTROPHILS % 91.2 % (36.0-66.0); PLATELET COUNT, AUTOMATED 247 k/mm3 (150-450); RED CELL DISTRIBUTION WIDTH 12.2 % (11.5-14.5); WHITE BLOOD COUNT 14.7 K/mm3 (4.0-10.0)
[2016-10-21 07:59] LABS: ALBUMIN/GLOBULIN RATIO 0.75 (1.00-1.93); ALKALINE PHOSPHATASE 91 U/L (45-117); ALT/SGPT < 6 U/L (12-78); ANION GAP 9 MEQ/L (8-16); AST/SGOT 10 U/L (15-37); BILIRUBIN,TOTAL 0.7 MG/DL (0.2-1.0); BLOOD UREA NITROGEN 25 MG/DL (7-18); CALCIUM LEVEL 8.5 MG/DL (8.8-10.2); CARBON DIOXIDE LEVEL 30 MEQ/L (21-32); CHLORIDE LEVEL 96 MEQ/L (98-107); CREATININE FOR GFR 1.37 MG/DL (0.55-1.02); GLOMERULAR FILTRATION RATE 39.4 (>32); GLUCOSE, FASTING 132 MG/DL (83-110); MAGNESIUM LEVEL 1.9 MG/DL (1.8-2.4); POTASSIUM SERUM 4.2 MEQ/L (3.5-5.1); SODIUM LEVEL 135 MEQ/L (136-145)
[2016-10-21] MEDS: ASPIRIN 325 MG TAB PO SCH (09:29)
[2016-10-21] MEDS: VENLAFAXINE 37.5 MG TAB PO SCH (09:30)
[2016-10-21] MEDS: ENOXAPARIN 30 MG/0.3 ML SYR (J1650) SC SCH (09:32)
--- NOTE | 2016-10-21 10:39 | ECGEPIP ---
Stationary ECG Study [facility] - ED Test Date: 2016-10-20 Pat Name: WINTER VALDES Department: Room: - Gender: F Social Staff Worker: josiah : 1935 Requested By: Yanci Bergman Order Number: [id number] Reading MD: Ye Hickman Measurements Intervals [place] Rate: 89 P: 40 DE: 157 QRS: -4 QRSD: 85 T: 31 QT: 326 QTc: 397 Interpretive Statements SINUS RHYTHM Electronically Signed On 10-21-2016 10:38:49 EST by Ye Hickman
[2016-10-21] MEDS ORDERED: LEVALBUTEROL 1.25 MG/0.5 ML CONCENTRATE NEB INH PRN (14:45)
[2016-10-21] MEDS ORDERED: methylPREDNISolone INJ 125 MG/2 ML VIAL (J2930) IV ONE (15:15)
--- NOTE | 2016-10-21 15:22 | IPN ---
DATE: 10/20/2016 81-year-old female seen at bedside resting comfortably on 2 liters oxygen. She has had worsening issues of increased shortness of breath, hypoxia for the last several weeks, which has gotten progressively worse. She stated that she and her son confirm that she normally will go to the store with him and just walking across the room does seem to make her more short of breath. Occasional wheeze. She denies history of chronic obstructive pulmonary disease (COPD). Denies tobacco use, but was around a lot of secondhand smoke as she grew older. She does have underlying history of Parkinson's with cervical neck and back osteoarthritis and stiffness. Also on admission was started on antibiotic coverage for possible underlying clinical pneumonia. 2-D echo is pending at this time. We did check a bedside spirometry checking respiratory flow loops, which does suggest an obstructive picture. OBJECTIVE: Temperature is 99.7, pulse 84, respiratory rate 22, blood pressure 144/65, SPO2 is 93% on 2 liters. GENERAL: The patient appears to be in no acute distress. She is alert, pleasant to talk to. HEENT: Head is atraumatic, normocephalic. Eyes: Pupils equal, round, reactive to light and accommodation. Throat clear. LUNGS: Diminished bibasilar breath sounds, occasional wheeze. HEART: Regular rate and rhythm. ABDOMEN: Soft. EXTREMITIES: No edema. No calf tenderness. CT angio of the chest bibasilar atelectasis is noted. No signs of pulmonary embolism; however, she does have some movement artifact noted. Chest x-ray shows left lower lobe atelectasis. Left shoulder view, three-view x-ray does show degenerative changes. White count 14,000, hemoglobin 12.4, platelets are 247. Sodium is 135, potassium 4.2, chloride 96, bicarbonate 30, anion gap 9, BUN is 25, creatinine is 1.37, glucose 132, magnesium 1.9, AST 10, ALT less than 6, alkaline phosphatase 91, albumin is 3.0. Respiratory panel was negative. ASSESSMENT AND PLAN: 1. Hypoxia with increasing shortness of breath, dyspnea on exertion. We will go ahead and do a 2-D echo. Spirometry, as outlined above, does suggest an obstructive pattern. We will try her on some Xopenex, as well as dose Solu-Medrol. She is on 2 liters of oxygen currently. Overnight pulse oximetry did demonstrate a sustained drop in the oxygen which would qualify her for home oxygen. I would like to see how she responds to the above treatment. 2. Clinical pneumonia. Continue on current antibiotics. 3. Leukocytosis appears to be improving. 4. History of Parkinson's. Continue home medications. 5. Hypertension. No changes in her home medication. 6. Coronary artery disease, status post stent placement, stable. 7. History of back pain. Has Lidoderm patch, as well as her hydrocodone. 8. Deep vein thrombosis (DVT) prophylaxis. TEDs and sequential. DISPOSITION: Anticipate home discharge in the next 24-48 hours. I would like to check a 2-D echo to rule out any underlying congestive heart failure (CHF) issues.
[2016-10-22] VITALS (7 sets, daily range): BP systolic 126–155; BP diastolic 64–74
[2016-10-22] MEDS: SLF 3 ML SYR IV SCH ×4 (00:36→21:24)
[2016-10-22 05:56] LABS: BASO % 0.1 % (0.0-1.0); EOS % 0.4 % (0.0-3.0); LARGE UNSTAINED CELL # 0.1 K/mm3 (0.0-0.4); LARGE UNSTAINED CELL % 0.4 % (0.0-4.0); LYMPH # 0.5 K/mm3 (1.5-4.5); MEAN CORPUSCULAR HEMOGLOBIN 31.1 pg (27.0-33.0); MEAN CORPUSCULAR HGB CONC 32.8 g/dl (32.0-36.5); MEAN CORPUSCULAR VOLUME 94.7 fl (80.0-96.0); MONO # 0.1 K/mm3 (0.0-0.8); MONO % 1.1 % (0.0-5.0); NEUTROPHILS # 9.7 K/mm3 (1.8-7.7); PLATELET COUNT, AUTOMATED 286 k/mm3 (150-450); RED CELL DISTRIBUTION WIDTH 12.1 % (11.5-14.5); WHITE BLOOD COUNT 10.5 K/mm3 (4.0-10.0)
[2016-10-22 06:26] LABS: ALBUMIN 2.8 GM/DL (3.2-5.2); ALBUMIN/GLOBULIN RATIO 0.67 (1.00-1.93); BILIRUBIN,TOTAL 0.3 MG/DL (0.2-1.0); CALCIUM LEVEL 8.6 MG/DL (8.8-10.2); CREATININE FOR GFR 1.4 MG/DL (0.55-1.02); GLOMERULAR FILTRATION RATE 38.4 (>32); MAGNESIUM LEVEL 2.2 MG/DL (1.8-2.4); POTASSIUM SERUM 4.5 MEQ/L (3.5-5.1)
[2016-10-22] MEDS: SINEMET**CR** 25/100 TABCR PO SCH ×6 (06:44→21:24)
[2016-10-22] MEDS: PRAMIPEXOLE 0.25 MG TAB PO SCH (06:44)
[2016-10-22] MEDS: SINEMET 25-100 MG TAB PO SCH ×2 (06:47→09:53)
[2016-10-22] MEDS: cefTRIAXone SOD 1 GM in D5W MINI-BAG PLUS 50 ML IV SCH ×2 (06:47→17:14)
--- NOTE | 2016-10-22 07:21 | REP ---
LEFT UPPER EXTREMITY DOPPLER VENOUS ULTRASOUND: 10/21/2016. Clinical history: Erythema in the upper extremity from saline lock. Evaluate for DVT. Technique: Standard duplex techniques were utilized to evaluate the deep venous system from the antecubital fossa to the base of the neck with the confluence of the left subclavian and jugular veins. Findings: The deep venous system is fully compressible in the brachial veins, axillary vein and the superficial system in the upper arm including the cephalic vein shows full compressibility throughout its course. The subclavian and jugular vein show color flow throughout their course. There is respiratory variation and augmented flow at all levels. Impression: 1. No Doppler venous ultrasound evidence of DVT in the left upper extremity. Signed by Oswaldo Watson MD 10/22/2016 04:21 P
--- NOTE | 2016-10-22 09:12 | NOCOX ---
DATE OF PROCEDURE: From the night of 10/20 to the morning of 10/21/2016 ORDERING PROVIDER: Dr. Nassar Study is performed on room air. Mean oxygen saturation for this study 91%. Lowest reliably recorded baseline 86%. Some artifact is noted, especially late in the study. In the mid portion of the study from approximately 0200 hours to about 0320 hours, the baseline dose drift to between 86 and 88% and remains there for greater than 5 minutes' time. This pattern is most suggestive of primary alveolar hypoventilation. Later in the study as well, saturation hovers right in and around 88%. IMPRESSION Abnormal nocturnal oximetry, suggests primary alveolar hypoventilation. Suggest adding 2 liters nasal cannula and repeating this study.
[2016-10-22] MEDS: VENLAFAXINE 37.5 MG TAB PO SCH (09:52)
[2016-10-22] MEDS: ENOXAPARIN 30 MG/0.3 ML SYR (J1650) SC SCH (09:52)
[2016-10-22] MEDS: SPIRONOLACTONE 50 MG TAB PO SCH ×2 (09:52→21:24)
[2016-10-22] MEDS: levETIRAcetam 250MG TABLET (KEPPRA) PO SCH ×2 (09:54→21:23)
[2016-10-22] MEDS: ASPIRIN 325 MG TAB PO SCH (09:55)
--- NOTE | 2016-10-22 17:15 | IPN ---
DATE: 10/22/2016 81-year-old female seen at bedside resting comfortably. No complaints. Currently no chest pain or productive sputum or hemoptysis. OBJECTIVE: Temperature is 97, pulse 63, respiratory rate 22, BP 155/69, SPO2 is 95% on 2 liters. GENERAL: The patient appears to be in no acute distress. She is alert, pleasant. HEENT: Unremarkable. LUNGS: Diminished bibasilar breath sounds otherwise clear. HEART: Regular rhythm. ABDOMEN: Soft. EXTREMITIES: No edema nor calf tenderness. LABORATORY DATA: White count 10.5, hemoglobin 12.2, platelets 286. Sodium 134, potassium 4.5, chloride 98, bicarb 26, anion gap 10, BUN 32, creatinine 1.4, glucose is 208, calcium 8.6, bilirubin 2.3, AST 80, ALT 8, alkaline phosphatase 91, albumin 2.8. ASSESSMENT/PLAN: 1. Hypoxia, increased shortness of breath, dyspnea on exertion. Echocardiogram has been completed waiting official reading at this time. She is tolerating well on [address] We did place order for as needed Xopenex and she does qualify for continuous oxygen use. 2. Clinical pneumonia. Will finish out course of antibiotics. 3. Leukocytosis improving. 4. History of Parkinson's. Continue home medications. 5. 0Hypertension. No further changes. 6. Coronary artery disease status post stent placement, stable. 7. History of back pain has Lidoderm as well as hydrocodone. 8. DVT prophylaxis thromboembolic deterrent stockings (TEDS) and sequentials. DISPOSITION: Will review 2-D echo report when complete and anticipate discharge back to the assisted living within the next 24-48 hours. I did request physical therapy to see her. They did feel that she is at her baseline and ambulates with rolling walker and able to do well with 2 liters of oxygen. DISPOSITION: Again anticipate discharge to assisted living tomorrow.
--- NOTE | 2016-10-22 18:23 | ECHO ---
DATE OF PROCEDURE: 10/22/2016 REFERRING PHYSICIAN: Dawson Nassar MD INDICATION: Dyspnea. HEIGHT: 160 cm WEIGHT: 101 kg. DIMENSIONS: IVS: 1.1 LV: 4.2 LVPW: 1.0 LA: 4.2 Aorta: 2.8 FINDINGS: The study is of acceptable technical quality. Left ventricle is of normal size and systolic function with estimated ejection fraction (EF) around 60-65%. Right ventricle does not appear grossly enlarged. Both atria are at least mildly enlarged. Aortic valve is mildly sclerotic, but the leaflets have normal mobility. There are degenerative abnormalities of mitral valve with mitral annular calcifications. Tricuspid valve appears normal. Pulmonic valve was not well seen. No pericardial effusion is noted, but left pleural effusion is noted. Inferior vena cava is markedly dilated, but appropriately collapses with respiration indicative of mildly elevated central venous pressure. Doppler interrogation of aortic valve reveals no significant stenosis or insufficiency. There is mild mitral insufficiency and moderate tricuspid insufficiency. Calculated pulmonary artery pressure is in 50s corresponding to at least moderate pulmonary hypertension. Mitral inflow pattern on tissue Doppler imaging of mitral annulus revealed grade 2 diastolic dysfunction, (tissue Doppler velocities of septal and lateral mitral annulus are 6.6 and 8.7 cm/s respectively). CONCLUSION: 1. Study is of acceptable technical quality. 2. Normal LV size and systolic function, grade 2 diastolic dysfunction. 3. Aortic sclerosis, but no significant stenosis. 4. Mild mitral regurgitation (MR). 5. Moderate tricuspid regurgitation (TR). 6. Left pleural effusion. 7. Elevated central venous pressure and least moderate pulmonary hypertension. COMMENT: Subacute bacterial endocarditis (SBE) prophylaxis is not recommended. The study is overall consistent with diastolic congestive heart failure. INDICATION
[2016-10-22] MEDS: rOPINIRole 1MG TAB PO SCH (21:22)
[2016-10-22] MEDS: SIMVASTATIN 20 MG TAB PO SCH (21:23)
[2016-10-22] MEDS: GABAPENTIN 400 MG CAP PO SCH (21:23)
[2016-10-22] MEDS: ATENOLOL 25 MG TAB PO SCH (21:23)
[2016-10-22] MEDS: traZODone 50 MG TAB PO SCH (21:24)
[2016-10-23] MEDS: ACETAMINOPHEN TAB 650MG DOSE (2X325MG) PO PRN (00:12)
[2016-10-23 04:00] VITALS: BP 137/60
[2016-10-23 06:05] LABS: BASO % 0.1 % (0.0-1.0); EOS # 0.1 K/mm3 (0.0-0.50); EOS % 0.5 % (0.0-3.0); LARGE UNSTAINED CELL # 0.2 K/mm3 (0.0-0.4); LARGE UNSTAINED CELL % 1.3 % (0.0-4.0); LYMPH # 0.8 K/mm3 (1.5-4.5); LYMPH % 6.9 % (24.0-44.0); MEAN CORPUSCULAR HEMOGLOBIN 30.7 pg (27.0-33.0); MEAN CORPUSCULAR HGB CONC 31.8 g/dl (32.0-36.5); MEAN CORPUSCULAR VOLUME 96.3 fl (80.0-96.0); MONO # 0.6 K/mm3 (0.0-0.8); MONO % 5.2 % (0.0-5.0); NEUTROPHILS # 9.9 K/mm3 (1.8-7.7); PLATELET COUNT, AUTOMATED 304 k/mm3 (150-450); WHITE BLOOD COUNT 11.5 K/mm3 (4.0-10.0)
[2016-10-23 06:13] LABS: ALBUMIN 2.6 GM/DL (3.2-5.2); ALBUMIN/GLOBULIN RATIO 0.67 (1.00-1.93); ALKALINE PHOSPHATASE 81 U/L (45-117); ALT/SGPT < 6 U/L (12-78); ANION GAP 7 MEQ/L (8-16); AST/SGOT 11 U/L (15-37); BILIRUBIN,TOTAL 0.2 MG/DL (0.2-1.0); BLOOD UREA NITROGEN 39 MG/DL (7-18); CALCIUM LEVEL 8.4 MG/DL (8.8-10.2); CARBON DIOXIDE LEVEL 30 MEQ/L (21-32); CHLORIDE LEVEL 100 MEQ/L (98-107); CREATININE FOR GFR 1.32 MG/DL (0.55-1.02); GLOMERULAR FILTRATION RATE 41.1 (>32); GLUCOSE, FASTING 172 MG/DL (83-110); MAGNESIUM LEVEL 2.3 MG/DL (1.8-2.4); POTASSIUM SERUM 4.4 MEQ/L (3.5-5.1); SODIUM LEVEL 137 MEQ/L (136-145); TOTAL PROTEIN 6.5 GM/DL (6.4-8.2)
[2016-10-23] MEDS: cefTRIAXone SOD 1 GM in D5W MINI-BAG PLUS 50 ML IV SCH (06:39)
[2016-10-23] MEDS: SLF 3 ML SYR IV SCH ×2 (06:40→12:53)
[2016-10-23] MEDS: SINEMET 25-100 MG TAB PO SCH ×2 (06:40→09:10)
[2016-10-23] MEDS: SINEMET**CR** 25/100 TABCR PO SCH ×3 (06:40→12:46)
[2016-10-23] MEDS: PRAMIPEXOLE 0.25 MG TAB PO SCH (06:40)
[2016-10-23 07:25] VITALS: BP 121/59
[2016-10-23] MEDS ORDERED: ZITH250T PO (09:05)
[2016-10-23] MEDS: levETIRAcetam 250MG TABLET (KEPPRA) PO SCH (09:10)
[2016-10-23] MEDS: VENLAFAXINE 37.5 MG TAB PO SCH (09:10)
[2016-10-23] MEDS: ASPIRIN 325 MG TAB PO SCH (09:10)
[2016-10-23] MEDS: ENOXAPARIN 30 MG/0.3 ML SYR (J1650) SC SCH (09:11)
[2016-10-23] MEDS: SPIRONOLACTONE 50 MG TAB PO SCH (09:11)
--- NOTE | 2016-10-23 12:49 | BSSPIR ---
DATE OF PROCEDURE: 10/21/2016 ORDERED BY: Dr. Nassar Study of reasonable technical quality. Some mild difficulty with effort is noted. Forced vital capacity reduced. FEV1 is generally in proportion. Obstructive index is therefore normal. The expiratory limb of the flow volume loop does suggest some nonspecific flow rate reductions however. IMPRESSION: Suspected degree of obstructive impairment with air trapping versus true concomitant restriction. Full study recommended.
--- NOTE | 2016-10-23 16:27 | DSES ---
DATE OF ADMISSION: 10/20/2016 DATE OF DISCHARGE: 10/23/2016 PRIMARY CARE PROVIDER : Dr. Ulloa CONSULTATIONS: None. PROCEDURES: None. COMPLICATIONS: None. ADMISSION/DISCHARGE DIAGNOSES: 1. Hypoxia with restrictive lung disease, possible component of obstructive lung disease, questionable clinical pneumonia with no fever, no leukocytosis currently. 2. History of Parkinson's. 3. Hypertension. 4. Coronary artery disease status post stent placement. 5. History of chronic back pain, neck pain with Lidoderm patch and hydrocodone BRIEF HOSPITAL COURSE: Ms. Willoughby is a pleasant 81-year-old female sent to the emergency department from [facility] due to increasing shortness of breath, which has been progressively getting worse over the last several weeks to months, noticeably when she exerts herself. She was admitted for further workup and observation. She does state that she has occasional left shoulder pain, which x-ray did demonstrate some osteoarthritis. Her chest x-ray did show a left lower lobe atelectasis versus scarring. CT angiography of the chest was negative for pulmonary embolism, bibasilar atelectasis, or infiltrates were noted. Duplex ultrasound of the left upper extremity was negative for deep vein thrombosis (DVT) after she had had an intravenous (IV) infiltrate while in the hospital. A 2D echo shows a left ventricular ejection fraction of 60-65%, normal left ventricular size and systolic function with grade 2 diastolic dysfunction, aortic sclerosis, mild mitral regurgitation, moderate tricuspid regurgitation, left pleural effusion, and elevated central venous pressure with at least moderate pulmonary hypertension. At any rate, she was started on oxygen and titrated to 2 liters. Did well. Was able to participate with physical therapy, and arrangements were made for her to have a continuous oxygen with portability. For further details please see the history and physical by Dr. Vieira on admission. PHYSICAL EXAMINATION: Today temperature is 96.7, pulse 68, respiratory rate 18, nonlabored, blood pressure (BP) 121/59, SPO2 is 95% on 2 liters. GENERAL: The patient appears to be in no acute stress. Is alert. HEENT: Unremarkable. LUNGS: Clear. HEART: Regular rate and rhythm. ABDOMEN: Soft. EXTREMITIES: No edema. No calf tenderness. LABORATORY DATA: White count 11.5, hemoglobin 11.4, platelets 304,000. Sodium 137, potassium 4.4, chloride 100, bicarbonate 30, anion gap 7, BUN is 39, creatinine 1.32, glucose 172, magnesium 2.3. AST 11, ALT less than 6, alkaline phosphatase 81, albumin is 2.6. Respiratory panel is negative. DISCHARGE CONDITION: Good. DISPOSITION: Discharge [facility] assisted living with oxygen and portability CURRENT MEDICATIONS: - acetaminophen 650 mg three times a day as needed - [place] 5/325 one tablet every 4 hour as needed for back pain - albuterol inhaler and nebulizer as needed - aspirin 325 mg daily - atenolol 25 mg at bedtime, to resume her previous dose. - Coricidin HBP one tablet four times a day as needed for cough and cold - gabapentin 400 mg at bedtime - Klor-Con 10 mEq daily - Keppra 500 mg twice a day - Lidoderm patch one patch applied topically daily as needed - loperamide 2 mg by mouth daily as needed for diarrhea - sublingual nitroglycerin 0.4 mg as directed every 5 minutes as needed - nystatin powder topically twice a day to rash - Mirapex 0.5 mg daily - Requip XL 6 mg at bedtime - simvastatin 20 mg at bedtime - spironolactone 50 mg twice a day - trazodone 50 mg at bedtime - venlafaxine 37.5 mg daily - Voltaren 1% gel applied topically as needed for pain and inflammation. DISCHARGE INSTRUCTIONS: Discharge to [facility] Assisted Living. Activity as tolerated. Regular diet. Arrangements were made for oxygen with portability. Should be seen by her primary care provider in a week. If further issues with pulmonary, she may need outpatient pulmonary testing with appropriate full gamut of pulmonary function tests (PFTs). She is encouraged to seek medical attention if symptoms should worsen or progress. She voices understanding. Discharge took 35 minutes.
== END 2016-10-23 14:09 | DRG 195 ==
LOC: M ED 14:46 → OBSVTOIN 20:46 → M ED INP 20:46 → INTOOBSV 20:46 → M PCU 22:32
PROVIDERS: ADMIT Internal Medicine; ATTEND Hospitalist
DX: J18.9 Pneumonia, unspecified organism (principal); G20 Parkinson's disease; I10 Essential (primary) hypertension; E78.5 Hyperlipidemia, unspecified; M19.012 Primary osteoarthritis, left shoulder; M47.812 Spondylosis without myelopathy or radiculopathy, cervical region; I51.89 Other ill-defined heart diseases; I27.2 Other secondary pulmonary hypertension; I25.10 Atherosclerotic heart disease of native coronary artery without angina pectoris; R09.02 Hypoxemia; Z90.710 Acquired absence of both cervix and uterus; Z98.1 Arthrodesis status; Z79.82 Long term (current) use of aspirin; Z79.899 Other long term (current) drug therapy; Z88.6 Allergy status to analgesic agent; Z88.8 Allergy status to other drugs, medicaments and biological substances; Z79.891 Long term (current) use of opiate analgesic; Z95.5 Presence of coronary angioplasty implant and graft

== ENCOUNTER 2017-03-23 05:26 | Emergency (ER) | payer MEDICARE, MEDICAID ==
[~2017-03-23] VITALS: Ht 157.5 cm; Wt 90.9 kg
[~2017-03-23 05:26] MED LIST changes: -ACET-654 PO; +ACET1TAB17 PO; +ALBU83IN INH; +ASPI325T PO; +CARB1TAB PO; +HYDR-3713 PO; +KEPP1TAB PO; -KEPP500T6 PO; +KLOR1CAP2 PO; -LIDO5DIS36 TOP; +LIDO5DIS41 TOP; -NYST100024 TOP; +NYST1POW9 TOP; +PROAAER10 INH; -SINE25TACR PO; +TRAZ50TA11 PO; -TRAZ50TA4 PO; +VOLT1GEL15 TOP; -VOLT1GEL24 TOP; +ZITH250T PO
[2017-03-23] MEDS: IPRATROPIUM 0.5MG/ALBUTEROL 2.5MG INH SOL UD 3ML (DUONEB)(J7620) NEB SCH ×3 (06:24→06:34)
[2017-03-23 06:39] LABS: VENOUS BASE EXCESS -3.3 (-2.0-2.0); VENOUS O2 SATURATION 95.1 % (60.0-80.0); VENOUS PARTIAL PRESSURE CO2 34.4 mmHg (38.0-50.0); VENOUS PARTIAL PRESSURE O2 79.1 mmHg (30.0-50.0); VENOUS STANDARD HCO3 21.7 MEQ/L; VENOUS TOTAL CO2 21.9 MEQ/L (24.0-28.0)
[2017-03-23 06:52] LABS: ADD MANUAL DIFFER YES; MEAN CORPUSCULAR HEMOGLOBIN 32.7 pg (27.0-33.0); MEAN CORPUSCULAR HGB CONC 33.9 g/dl (32.0-36.5); MEAN CORPUSCULAR VOLUME 96.4 fl (80.0-96.0); PLATELET COUNT, AUTOMATED 223 k/mm3 (150-450); RED CELL DISTRIBUTION WIDTH 12.3 % (11.5-14.5); WHITE BLOOD COUNT 7.8 K/mm3 (4.0-10.0)
[2017-03-23 07:34] LABS: CALCIUM LEVEL 8.7 MG/DL (8.8-10.2); CREATININE FOR GFR 1.06 MG/DL (0.55-1.02); GLOMERULAR FILTRATION RATE 52.8 (>32); POTASSIUM SERUM 4.1 MEQ/L (3.5-5.1)
[2017-03-23] MEDS ORDERED: SINEMET 25-100 MG TAB PO STA (07:58)
[2017-03-23] MEDS ORDERED: cefTRIAXone SOD 2 GM in D5W MINI-BAG PLUS 50 ML IV ONE (08:00)
[2017-03-23] MEDS ORDERED: NS 500 ML IV ONE (08:00)
--- NOTE | 2017-03-23 08:12 | REP ---
Portable chest, single AP view, the patient sitting, 06:56 a.m.: Comparison is 10/20/2016. There is minor atelectasis in the left costophrenic angle, unchanged. Lung mejía otherwise clear. Cardiac size is normal. The rahul, mediastinum, and bony thorax are unremarkable. Impression: Negative portable chest except for atelectasis in the left costophrenic angle. Signed by Rosendo Hutchins MD 03/23/2017 08:04 A
[2017-03-23] MEDS ORDERED: CIPR-249 PO (09:36)
[2017-03-23 10:21] VITALS: BP 136/62
[2017-03-24] MEDS ORDERED: CIPR500T3 PO (12:59)
[2017-03-24] MEDS ORDERED: ASPI1TAB15 PO (13:12)
[2017-03-24] MEDS ORDERED: VENL75CA2 PO (13:12)
== END 2017-03-23 10:53 | disposition home or self-care (01) ==
LOC: EDBD 05:26 → M ED 05:26
DX: R50.9 Fever, unspecified (principal); N39.0 Urinary tract infection, site not specified; R00.0 Tachycardia, unspecified; I25.10 Atherosclerotic heart disease of native coronary artery without angina pectoris; E78.5 Hyperlipidemia, unspecified; G20 Parkinson's disease; K21.9 Gastro-esophageal reflux disease without esophagitis; G40.909 Epilepsy, unspecified, not intractable, without status epilepticus; Z88.5 Allergy status to narcotic agent; Z88.8 Allergy status to other drugs, medicaments and biological substances; Z79.899 Other long term (current) drug therapy; Z79.82 Long term (current) use of aspirin
CPT/HCPCS: 71010; 80048; 81001; 82803; 83605; 85025; 87040; 87077; 87088; 87186; 94640; 96365; 99284; J0696

== ENCOUNTER 2017-03-24 08:56 | Emergency (ER) | payer MEDICARE, MEDICAID ==
[~2017-03-24 08:56] MED LIST changes: +CIPR-249 PO
[2017-03-24] MEDS ORDERED: SINEMET 25-100 MG TAB PO ONE ×2 (10:00→10:15)
[2017-03-24] MEDS ORDERED: SINEMET 12.5MG/50MG PER 1/2 TABLET PO ONE (10:15)
[2017-03-24 11:23] LABS: WHITE BLOOD COUNT 16.6 K/mm3 (4.0-10.0)
[2017-03-24 11:24] LABS: ADD MANUAL DIFFER YES; MEAN CORPUSCULAR HEMOGLOBIN 32.7 pg (27.0-33.0); MEAN CORPUSCULAR HGB CONC 34.4 g/dl (32.0-36.5); MEAN CORPUSCULAR VOLUME 95.3 fl (80.0-96.0); PLATELET COUNT, AUTOMATED 176 k/mm3 (150-450); RED CELL DISTRIBUTION WIDTH 12.5 % (11.5-14.5)
--- NOTE | 2017-03-24 11:29 | REP ---
CT ABDOMEN PELVIS WITHOUT CONTRAST: 03/24/2017 CLINICAL HISTORY: Pyelonephritis. No comparison study. TECHNIQUE: Noncontrast CT abdomen and pelvis with coronal and sagittal reconstructions were provided. FINDINGS: CT ABDOMEN: The lung bases show dependent atelectatic and fibrotic changes without effusion or definite infiltrate. Heart not grossly enlarged but the left atrium is prominent. No pericardial thickening or effusion. No definite hiatal hernia. There is no hepatosplenomegaly, focal hepatic or splenic lesion or intrahepatic biliary dilatation. Clips from prior cholecystectomy are noted. Adrenal glands are normal. The right kidney showed no stone, hydronephrosis or mass. The left kidney shows multiple stones posteriorly in the left lower poles of 13 mm, stone anteriorly is an 8 mm stone while in the renal pelvis, there is an 18 mm stone. Mild hydronephrosis is seen. I do not see hydroureter. Some stranding about the left kidney in the perinephric fat greater than the right kidney. The aorta has calcifications without aneurysm and no periaortic or retroperitoneal pathologic sized lymphadenopathy. Small bowel loops are unremarkable. The colon shows a small amount of edema and fluid along the lateral coronal fascia on the left side adjacent to the Gerota's fascia. No definite colitis or diverticulitis. CT bone window settings show diffuse degenerative disc and facet arthritic changes lower lumbar spine. No acute compression deformity, similar degenerative changes at the disc spaces throughout the visible thoracic spine. The visualized ribs are intact. CT PELVIS: Bone windows show degenerative changes of the hips, SI joints and lumbosacral junction without destructive lesion or fracture. Distal ureters without dilatation or stone. The bladder is without calcification or stone within it. Small bowel loops in the deep pelvis without dilatation. The distal left colon, sigmoid and rectum grossly intact. No adenopathy. There is no ventral or inguinal hernia. IMPRESSION: There is nephrolithiasis on the left with an 18 mm stone in the renal pelvis, 13 and 8 mm stones in the lower pole and some mild hydronephrosis, perinephric stranding noted. No ureteral dilatation or stone and the right side was unremarkable for stone or dilatation. This suggests hydronephrosis with possibility of pyonephrosis given the obstruction and reported pyelonephritis. Relief of obstruction should be considered. Consultation with Urology recommended. Discussed with Dr. Hickman by phone. Signed by Oswaldo Watson MD 03/24/2017 07:05 P
[2017-03-24 11:33] LABS: ALBUMIN 2.9 GM/DL (3.2-5.2); ALBUMIN/GLOBULIN RATIO 0.94 (1.00-1.93); ALKALINE PHOSPHATASE 90 U/L (45-117); ALT/SGPT < 6 U/L (12-78); ANION GAP 12 MEQ/L (8-16); AST/SGOT 20 U/L (15-37); BILIRUBIN,DIRECT 0.5 MG/DL (0.0-0.2); BILIRUBIN,TOTAL 1.1 MG/DL (0.2-1.0); BLOOD UREA NITROGEN 38 MG/DL (7-18); CALCIUM LEVEL 8.5 MG/DL (8.8-10.2); CARBON DIOXIDE LEVEL 24 MEQ/L (21-32); CHLORIDE LEVEL 102 MEQ/L (98-107); CREATININE FOR GFR 1.59 MG/DL (0.55-1.02); GLOMERULAR FILTRATION RATE 33.1 (>32); GLUCOSE, FASTING 123 MG/DL (83-110); POTASSIUM SERUM 3.6 MEQ/L (3.5-5.1); SODIUM LEVEL 138 MEQ/L (136-145)
[2017-03-24] MEDS ORDERED: NS 1,000 ML IV SCH (11:45)
[2017-03-24] MEDS ORDERED: IPRATROPIUM 0.5MG/ALBUTEROL 2.5MG INH SOL UD 3ML (DUONEB)(J7620) NEB ONE (12:00)
[2017-03-24] MEDS ORDERED: CEFEPIME HCL 2 GM in D5W MINI-BAG PLUS 50 ML IV ONE (12:15)
[2017-03-24] MEDS ORDERED: CIPR500T3 PO (12:59)
[2017-03-24] MEDS ORDERED: ASPI1TAB15 PO (13:12)
[2017-03-24] MEDS ORDERED: VENL75CA2 PO (13:12)
[2017-03-24] MEDS ORDERED: ACETAMINOPHEN TAB 650MG DOSE (2X325MG) PO ONE (13:15)
[2017-03-24 14:59] VITALS: BP 136/63
== END 2017-03-24 15:08 | disposition short-term general hospital (02) ==
LOC: M ED 08:56 → EDBD 08:56 → M ED 15:08
DX: N13.6 Pyonephrosis (principal); R78.81 Bacteremia; N20.0 Calculus of kidney; I10 Essential (primary) hypertension; I25.10 Atherosclerotic heart disease of native coronary artery without angina pectoris; G40.909 Epilepsy, unspecified, not intractable, without status epilepticus; G20 Parkinson's disease; Z90.79 Acquired absence of other genital organ(s); Z90.49 Acquired absence of other specified parts of digestive tract; Z79.82 Long term (current) use of aspirin; Z79.899 Other long term (current) drug therapy; Z88.5 Allergy status to narcotic agent; Z88.8 Allergy status to other drugs, medicaments and biological substances; Z95.5 Presence of coronary angioplasty implant and graft; Z85.3 Personal history of malignant neoplasm of breast; Z90.11 Acquired absence of right breast and nipple; Z85.828 Personal history of other malignant neoplasm of skin
CPT/HCPCS: 36415; 74176; 80048; 80076; 83605; 85025; 87040; 94640; 96374; 99285; J0692

== ENCOUNTER 2017-03-31 07:47 | Emergency (ER) | payer MEDICARE, MEDICAID ==
[~2017-03-31] VITALS: Ht 165.1 cm; Wt 102.3 kg
[~2017-03-31 07:47] MED LIST changes: +ASPI1TAB15 PO; +CIPR500T3 PO; +VENL75CA2 PO
[2017-03-31] MEDS ORDERED: NORC1TAB4 PO (08:10)
[2017-03-31] MEDS ORDERED: MILKSUS PO (08:10)
[2017-03-31] MEDS ORDERED: NS 1,000 ML IV ONE (08:15)
[2017-03-31] MEDS ORDERED: ONDANSETRON 4MG/2ML VIAL (J2405) IV ONE ×2 (08:15→10:15)
[2017-03-31] MEDS: MORPHINE 2 MG/ML 1ML SYRINGE IV PRN ×3 (08:28→09:21)
[2017-03-31 08:48] LABS: BASO % 0.3 % (0.0-1.0); EOS % 0.3 % (0.0-3.0); LARGE UNSTAINED CELL # 0.2 K/mm3 (0.0-0.4); LARGE UNSTAINED CELL % 0.9 % (0.0-4.0); LYMPH # 0.7 K/mm3 (1.5-4.5); LYMPH % 3.1 % (24.0-44.0); MEAN CORPUSCULAR HEMOGLOBIN 31.6 pg (27.0-33.0); MEAN CORPUSCULAR HGB CONC 33.3 g/dl (32.0-36.5); MEAN CORPUSCULAR VOLUME 94.7 fl (80.0-96.0); MONO # 0.5 K/mm3 (0.0-0.8); MONO % 2.6 % (0.0-5.0); NEUTROPHILS # 16.9 K/mm3 (1.8-7.7); NEUTROPHILS % 92.9 % (36.0-66.0); PLATELET COUNT, AUTOMATED 227 k/mm3 (150-450); RED CELL DISTRIBUTION WIDTH 12.6 % (11.5-14.5); WHITE BLOOD COUNT 18.2 K/mm3 (4.0-10.0)
[2017-03-31] MEDS ORDERED: oxygen (08:54)
[2017-03-31] MEDS ORDERED: BISA10SU4 PR (08:54)
[2017-03-31] MEDS ORDERED: ENEM1ENE4 PR (08:54)
[2017-03-31 09:11] LABS: INR 1.54
--- NOTE | 2017-03-31 09:23 | REP ---
CT of the abdomen and pelvis without IV or bowel contrast: Comparison is 03/24/2017. There has been interim placement of a left percutaneous nephrostomy. The distal tip of the nephrostomy can be seen anteriorly in the left renal pelvis and there is no dislodgement. However, the left kidney is significantly increased in size with focal zones of hypodensity. This may represent intraparenchymal hemorrhage or infection. Additionally, there is significant perinephric stranding which could represent retroperitoneal hemorrhage or infection. I suspect there is a calculus in the proximal left ureter. This is unchanged. The previous calculus identified in the lower pole of the left renal pelvis is not identified with certainty. There is a small left pleural effusion and a tiny right pleural effusion. These were not present previously. The visualized lung mejía otherwise clear. The unenhanced hepatic parenchyma is unremarkable. There are surgical clips in the gallbladder fossa. The pancreas and spleen are unremarkable. Right kidney is unremarkable. Abdominal aorta is unremarkable. The bowel and mesentery are unremarkable. Pelvis: The bladder is unremarkable. There is no ascites. No adenopathy. The pelvic bowel loops are unremarkable. Impression: There is no evidence of nephrostomy dislodgement. However, left kidney is significantly increased in size with foci of hypodensity, compatible with intraparenchymal hemorrhage or infection. There is significant perinephric stranding compatible with extrarenal retroperitoneal hemorrhage or infection. I suspect there is a calculus in the proximal left ureter. This is unchanged. The previous calculus identified in the lower pole of the left renal pelvis is not identified with certainty. There are small bilateral pleural effusions as an interval change. Signed by Rosendo Hutchins MD 03/31/2017 09:14 A
[2017-03-31] MEDS ORDERED: PIPERACILLIN/TAZOBACTAM SOD 4.5 GM in D5W MINI-BAG PLUS 50 ML IV ONE (09:30)
[2017-03-31 10:06] LABS: MICROSCOPIC EXAM PERFORMED; MICROSCOPIC INDICATED? MAN YES (NO)
[2017-03-31 10:08] LABS: BACTERIA, URINE NONE SEEN; HYALINE CAST, URINE NONE SEEN /lpf (0-1); RBC, URINE TNTC /hpf (0-3); SQUAMOUS EPITHELIAL CELL URINE NONE SEEN /hpf (SMALL AMT)
[2017-03-31 10:26] LABS: ALBUMIN 1.9 GM/DL (3.2-5.2); ALBUMIN/GLOBULIN RATIO 0.79 (1.00-1.93); ALKALINE PHOSPHATASE 82 U/L (45-117); ALT/SGPT 6 U/L (12-78); AMYLASE 16 U/L (25-115); ANION GAP 10 MEQ/L (8-16); AST/SGOT 12 U/L (15-37); BILIRUBIN,DIRECT 0.2 MG/DL (0.0-0.2); BLOOD UREA NITROGEN 10 MG/DL (7-18); CARBON DIOXIDE LEVEL 24 MEQ/L (21-32); CHLORIDE LEVEL 110 MEQ/L (98-107); CREATININE FOR GFR 0.51 MG/DL (0.55-1.02); GLOMERULAR FILTRATION RATE > 60.0 (>32); GLUCOSE, FASTING 161 MG/DL (83-110); POTASSIUM SERUM 2.7 MEQ/L (3.5-5.1); SODIUM LEVEL 144 MEQ/L (136-145); TOTAL PROTEIN 4.3 GM/DL (6.4-8.2)
[2017-03-31 10:27] LABS: BILIRUBIN,TOTAL 0.6 MG/DL (0.2-1.0)
--- NOTE | 2017-03-31 10:32 | REP ---
PORTABLE CHEST: AP portable view of the chest is performed. Comparison 03/23/2017. There is atelectasis/infiltrate in the left lung base. The right lung demonstrates no acute infiltrate. Cardiomediastinal silhouette is somewhat magnified. IMPRESSION: Left basilar infiltrate/atelectasis. Signed by Rosendo Webb MD 03/31/2017 04:54 P
[2017-03-31 10:33] LABS: CALCIUM LEVEL 5.9 MG/DL (8.8-10.2)
[2017-03-31 11:04] VITALS: BP 141/69
--- NOTE | 2017-03-31 11:06 | ED PDOC ---
Post-Departure Follow-Up LAB ANALYZER DOWN - I WAS JUST NOTIFIED THIS FLIGHT CREW PRESENT. LABS CALLED BACK BY LAB. LOW POTASSIUM NOTED. FLIGHT CREW TO ADMINISTER K RIDER. AND ARE AWARE. Jerome Jiménez MD Mar 31, 2017 11:06
--- NOTE | 2017-03-31 20:23 | ECGEPIP ---
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
== END 2017-03-31 11:09 | disposition short-term general hospital (02) ==
LOC: EDBD 07:47 → M ED 07:47
DX: N28.89 Other specified disorders of kidney and ureter (principal); I10 Essential (primary) hypertension; I25.10 Atherosclerotic heart disease of native coronary artery without angina pectoris; J90 Pleural effusion, not elsewhere classified; Z98.61 Coronary angioplasty status; Z88.5 Allergy status to narcotic agent; Z88.8 Allergy status to other drugs, medicaments and biological substances; Z91.011 Allergy to milk products
CPT/HCPCS: 36430; 71010; 74176; 80048; 80076; 80180; 81000; 82150; 82550; 82553; 83605; 83690; 84484; 85025; 85610; 85730; 86850; 86900; 86901; 86920; 87040; 87086; 93005; 93041; 99285; J2405; J2543; P9016

== ENCOUNTER → 2017-05-11 | Outpatient (REF) | payer MEDICARE, MEDICAID ==
[~2017-05-11] MED LIST changes: +AMAN100T PO; +BISA10SU4 PR; +ENEM1ENE4 PR; +IPRASOL4 IN; +MILKSUS PO; +NORC1TAB4 PO; +SLOWTAB2 PO; +oxygen
[2017-05-11 10:30] LABS: MEAN CORPUSCULAR HEMOGLOBIN 31.1 pg (27.0-33.0); MEAN CORPUSCULAR HGB CONC 32.1 g/dl (32.0-36.5); MEAN CORPUSCULAR VOLUME 96.8 fl (80.0-96.0); RED CELL DISTRIBUTION WIDTH 14.3 % (11.5-14.5); WHITE BLOOD COUNT 7.2 K/mm3 (4.0-10.0)
[2017-05-11 10:48] LABS: ALBUMIN 3.3 GM/DL (3.2-5.2); ALBUMIN/GLOBULIN RATIO 1.06 (1.00-1.93); ALKALINE PHOSPHATASE 113 U/L (45-117); ALT/SGPT 6 U/L (12-78); ANION GAP 8 MEQ/L (8-16); AST/SGOT 12 U/L (15-37); BILIRUBIN,TOTAL 0.7 MG/DL (0.2-1.0); BLOOD UREA NITROGEN 16 MG/DL (7-18); CALCIUM LEVEL 7.9 MG/DL (8.8-10.2); CARBON DIOXIDE LEVEL 32 MEQ/L (21-32); CHLORIDE LEVEL 102 MEQ/L (98-107); GLOMERULAR FILTRATION RATE > 60.0 (>32); GLUCOSE, FASTING 85 MG/DL (83-110); SODIUM LEVEL 142 MEQ/L (136-145); TOTAL PROTEIN 6.4 GM/DL (6.4-8.2)
== END ==
PROVIDERS: ATTEND Physician Assistant
DX: N39.0 Urinary tract infection, site not specified (principal)

== ENCOUNTER → 2017-05-18 | Outpatient (REF) | payer MEDICARE, MEDICAID ==
[2017-05-18 09:15] LABS: MEAN CORPUSCULAR HEMOGLOBIN 29.6 pg (27.0-33.0); MEAN CORPUSCULAR HGB CONC 30.7 g/dl (32.0-36.5); MEAN CORPUSCULAR VOLUME 96.6 fl (80.0-96.0); RED CELL DISTRIBUTION WIDTH 14.1 % (11.5-14.5); WHITE BLOOD COUNT 5.7 10^3/uL (4.0-10.0)
[2017-05-18 09:43] LABS: ALBUMIN 3.4 GM/DL (3.2-5.2); ALBUMIN/GLOBULIN RATIO 1.13 (1.00-1.93); ALKALINE PHOSPHATASE 112 U/L (45-117); ALT/SGPT < 6 U/L (12-78); ANION GAP 8 MEQ/L (8-16); AST/SGOT 12 U/L (15-37); BILIRUBIN,TOTAL 0.9 MG/DL (0.2-1.0); BLOOD UREA NITROGEN 11 MG/DL (7-18); CALCIUM LEVEL 8.6 MG/DL (8.8-10.2); CARBON DIOXIDE LEVEL 34 MEQ/L (21-32); CHLORIDE LEVEL 101 MEQ/L (98-107); CREATININE FOR GFR 0.75 MG/DL (0.55-1.02); GLOMERULAR FILTRATION RATE > 60.0 (>32); GLUCOSE, FASTING 81 MG/DL (83-110); SODIUM LEVEL 143 MEQ/L (136-145); TOTAL PROTEIN 6.4 GM/DL (6.4-8.2)
== END ==
PROVIDERS: ATTEND Physician Assistant
DX: N39.0 Urinary tract infection, site not specified (principal)

== ENCOUNTER → 2017-05-20 | Outpatient (REF) | payer MEDICARE, MEDICAID ==
[2017-05-21 12:30] LABS: FOLATE 2.8 NG/ML
== END ==
LOC: M LAB REF 10:59
PROVIDERS: ATTEND Internal Medicine
DX: D64.9 Anemia, unspecified (principal)

== ENCOUNTER 2017-06-10 03:36 | Emergency (ER) | payer MEDICARE, MEDICAID ==
[~2017-06-10] VITALS: Ht 160 cm; Wt 98.6 kg
[~2017-06-10 03:36] MED LIST changes: -AMAN100T PO; -IPRASOL4 IN; -SLOWTAB2 PO
[2017-06-10] MEDS ORDERED: TRAZ50TA11 PO (04:08)
[2017-06-10] MEDS ORDERED: HYDR-3713 PO (04:08)
[2017-06-10] MEDS ORDERED: IPRASOL4 IN (04:08)
[2017-06-10] MEDS ORDERED: AMAN100T PO (04:08)
[2017-06-10] MEDS ORDERED: SLOWTAB2 PO (04:08)
--- NOTE | 2017-06-10 05:40 | REPUSA ---
CLINICAL HISTORY: Shoulder pain. COMMENTS: Moderate degenerative changes are present at the acromioclavicular and glenohumeral joints. No evidence for acute fracture or dislocation. No evidence for osteolytic or osteoblastic change. The soft tissues are unremarkable. IMPRESSION: 1. No fracture or dislocation. 2. Degenerative changes as above.
[2017-06-10] MEDS ORDERED: PERCOCET 5MG/325MG TAB PO ONE (06:00)
[2017-06-10] MEDS ORDERED: NORCO, ANEXSIA 5/325MG TABLET (HYDROcodone/ACETAMINOPHEN) PO ONE (06:00)
[2017-06-10 07:07] VITALS: BP 132/78
--- NOTE | 2017-06-10 08:55 | REP ---
Right elbow two views : There is no fracture or dislocation. Mineralization and joint spaces are normal. There are no calcifications or foreign bodies. Impression: Negative right elbow . Signed by Rosendo Hutchins MD 06/10/2017 08:47 A
== END 2017-06-10 07:38 | disposition home or self-care (01) ==
LOC: M ED 03:36
DX: M25.511 Pain in right shoulder (principal); W19.XXXA Unspecified fall, initial encounter; Y92.129 Unspecified place in nursing home as the place of occurrence of the external cause; Y93.89 Activity, other specified; Y99.8 Other external cause status; I11.0 Hypertensive heart disease with heart failure; J84.10 Pulmonary fibrosis, unspecified; G20 Parkinson's disease; M19.90 Unspecified osteoarthritis, unspecified site; F33.9 Major depressive disorder, recurrent, unspecified; I50.9 Heart failure, unspecified; G47.00 Insomnia, unspecified; Z79.899 Other long term (current) drug therapy; Z88.5 Allergy status to narcotic agent; E73.9 Lactose intolerance, unspecified; Z88.8 Allergy status to other drugs, medicaments and biological substances

== ENCOUNTER → 2017-07-02 | Outpatient (REF) ==
[~2017-07-02] MED LIST changes: +AMAN100T PO; +IPRASOL4 IN; +SLOWTAB2 PO
[2017-07-02 14:46] LABS: MEAN CORPUSCULAR HEMOGLOBIN 27.7 pg (27.0-33.0); MEAN CORPUSCULAR HGB CONC 31.1 g/dl (32.0-36.5); MEAN CORPUSCULAR VOLUME 89.1 fl (80.0-96.0); WHITE BLOOD COUNT 8.7 10^3/uL (4.0-10.0)
[2017-07-02 14:55] LABS: CALCIUM LEVEL 8.3 MG/DL (8.8-10.2); CREATININE FOR GFR 1.1 MG/DL (0.55-1.02); GLOMERULAR FILTRATION RATE 50.6 (>32); POTASSIUM SERUM 3.3 MEQ/L (3.5-5.1)
[2017-07-02 15:32] LABS: PLT DIST POS FLAG
[2017-07-02 15:34] LABS: PLATELET COUNT, AUTOMATED 143 10^3/uL (150-450)
[2017-07-02 15:43] LABS: IMMATURE PLATELET FRACTION % 14.2 % (0.0-9.6)
== END ==
PROVIDERS: ATTEND Internal Medicine
DX: I50.9 Heart failure, unspecified (principal)

== ENCOUNTER → 2017-07-05 | Outpatient (REF) ==
[2017-07-05 10:55] LABS: MEAN CORPUSCULAR HEMOGLOBIN 28.1 pg (27.0-33.0); MEAN CORPUSCULAR HGB CONC 31.3 g/dl (32.0-36.5); PLATELET COUNT, AUTOMATED 178 10^3/uL (150-450); RED CELL DISTRIBUTION WIDTH 14.6 % (11.5-14.5); WHITE BLOOD COUNT 7.7 10^3/uL (4.0-10.0)
[2017-07-05 11:24] LABS: CALCIUM LEVEL 8.6 MG/DL (8.8-10.2); CREATININE FOR GFR 1.1 MG/DL (0.55-1.02); GLOMERULAR FILTRATION RATE 50.6 (>32); POTASSIUM SERUM 3.9 MEQ/L (3.5-5.1)
== END ==
PROVIDERS: ATTEND Internal Medicine
DX: R41.82 Altered mental status, unspecified (principal)

== ENCOUNTER → 2017-07-06 | Outpatient (REF) ==
[2017-07-06 13:36] LABS: MEAN CORPUSCULAR HEMOGLOBIN 27.9 pg (27.0-33.0); MEAN CORPUSCULAR HGB CONC 30.9 g/dl (32.0-36.5); MEAN CORPUSCULAR VOLUME 90.3 fl (80.0-96.0); PLATELET COUNT, AUTOMATED 187 10^3/uL (150-450); RED CELL DISTRIBUTION WIDTH 14.4 % (11.5-14.5); WHITE BLOOD COUNT 5.6 10^3/uL (4.0-10.0)
[2017-07-06 14:11] LABS: CALCIUM LEVEL 8.9 MG/DL (8.8-10.2); CREATININE FOR GFR 1.19 MG/DL (0.55-1.02); GLOMERULAR FILTRATION RATE 46.2 (>32)
--- NOTE | 2017-07-06 18:14 | REP ---
CHEST, SINGLE VIEW: Single view of the chest is performed. Persistent left pleural effusion has not changed. Right lung is clear. Cardiomediastinal silhouette is unchanged. IMPRESSION: Stable exam. Signed by Rosendo Webb MD 07/07/2017 11:37 A
== END ==
PROVIDERS: ATTEND Internal Medicine
DX: R41.0 Disorientation, unspecified (principal)

== ENCOUNTER → 2017-07-06 | Outpatient (REF) | payer MEDICARE, MEDICAID | LOC: SKLAB3 17:28 | PROVIDERS: ATTEND Internal Medicine | DX: R41.82 Altered mental status, unspecified (principal) ==

== ENCOUNTER → 2017-07-09 | Outpatient (REF) ==
[2017-07-09 10:28] LABS: MEAN CORPUSCULAR VOLUME 90.1 fl (80.0-96.0); PLATELET COUNT, AUTOMATED 179 10^3/uL (150-450); RED CELL DISTRIBUTION WIDTH 14.6 % (11.5-14.5); WHITE BLOOD COUNT 6.5 10^3/uL (4.0-10.0)
[2017-07-09 10:42] LABS: CALCIUM LEVEL 8.6 MG/DL (8.8-10.2); CREATININE FOR GFR 1.15 MG/DL (0.55-1.02); GLOMERULAR FILTRATION RATE 48.1 (>32); POTASSIUM SERUM 3.6 MEQ/L (3.5-5.1)
--- NOTE | 2017-07-09 13:18 | REP ---
Clinical: Hypoxia and chronic fibrosis. Technique: PA and lateral. Comparison: 07/06/2017. Findings: Diffuse chronic fibrosis and interstitial changes remain stable. Mild interstitial edema cannot be excluded. Acute left lower lobe consolidation and pleural effusion are essentially unchanged. Surgical clips identified overlying the right upper lung zone. Impression: Left lower lobe consolidation and small to moderate pleural effusion unchanged from prior examination. Signed by Jose A Ramirez MD 07/09/2017 01:10 P
== END ==
PROVIDERS: ATTEND Internal Medicine
DX: R09.02 Hypoxemia (principal); J90 Pleural effusion, not elsewhere classified; J84.112 Idiopathic pulmonary fibrosis

== ENCOUNTER → 2017-07-12 | Outpatient (REF) ==
[~2017-07-12] MED LIST changes: +BACITAB PO; +CHLO4TAB27 PO; +GENT80SY INJ; -IPRASOL4 IN; +IPRASOL4 INH; +LASI40TA PO; +MIRA33504 PO; +POTA20TA PO; +REQU2TAB PO; +SENE8.6T PO; +VENL150C43 PO
[2017-07-12 10:50] LABS: CALCIUM LEVEL 8.7 MG/DL (8.8-10.2); CREATININE FOR GFR 1.3 MG/DL (0.55-1.02); GLOMERULAR FILTRATION RATE 41.7 (>32); POTASSIUM SERUM 3.3 MEQ/L (3.5-5.1)
[2017-07-12 11:15] LABS: GENTAMICIN LEVEL TROUGH 6.5 MCG/ML (0.0-2.0)
== END ==
LOC: EEVIPCON 10:12
PROVIDERS: ATTEND Internal Medicine
DX: B95.2 Enterococcus as the cause of diseases classified elsewhere (principal)

== ENCOUNTER → 2017-07-14 | Outpatient (REF) ==
[2017-07-14 10:29] LABS: CALCIUM LEVEL 8.8 MG/DL (8.8-10.2); CREATININE FOR GFR 1.74 MG/DL (0.55-1.02); GLOMERULAR FILTRATION RATE 29.8 (>32); POTASSIUM SERUM 3.9 MEQ/L (3.5-5.1)
[2017-07-14 11:14] LABS: GENTAMICIN LEVEL TROUGH 6.3 MCG/ML (0.0-2.0)
== END ==
PROVIDERS: ATTEND Internal Medicine
DX: Z79.2 Long term (current) use of antibiotics (principal); N39.0 Urinary tract infection, site not specified

== ENCOUNTER → 2017-07-16 | Outpatient (REF) | payer MEDICAID, MEDICARE ==
[2017-07-16 11:18] LABS: CALCIUM LEVEL 8.9 MG/DL (8.8-10.2); CREATININE FOR GFR 2.16 MG/DL (0.55-1.02); GENTAMICIN LEVEL TROUGH 1.7 MCG/ML (0.0-2.0); GLOMERULAR FILTRATION RATE 23.2 (>32); POTASSIUM SERUM 4.7 MEQ/L (3.5-5.1)
== END ==
PROVIDERS: ATTEND Internal Medicine
DX: Z79.2 Long term (current) use of antibiotics (principal); N39.0 Urinary tract infection, site not specified

== ENCOUNTER → 2017-07-18 | Outpatient (REF) | payer MEDICARE, MEDICAID | PROVIDERS: ATTEND Internal Medicine | DX: Z79.899 Other long term (current) drug therapy (principal); Z79.2 Long term (current) use of antibiotics ==

== ENCOUNTER → 2017-07-19 | Outpatient (REF) | PROVIDERS: ATTEND Internal Medicine | DX: Z51.81 Encounter for therapeutic drug level monitoring (principal); Z79.899 Other long term (current) drug therapy ==

== ENCOUNTER 2017-07-21 11:48 | Inpatient (IN) | payer MEDICARE, MEDICAID ==
[2017-07-21 12:27] LABS: ABG BASE EXCESS 7.4 (-2.0-2.0); ABG HCO3 32.2 MEQ/L (22.0-26.0); ABG PARTIAL PRESSURE CO2 47.2 mmHg (35.0-45.0); ABG TOTAL CO2 33.7 MEQ/L (23.0-31.0); ABG pH (ARTERIAL) 7.452 UNITS (7.350-7.450)
[2017-07-21 13:29] LABS: BASO % 0.3 % (0.0-1.0); EOS % 0.3 % (0.0-3.0); IMMATURE GRANULOCYTE # 0.1 10^3/uL (0-0); IMMATURE GRANULOCYTE % 0.5 % (0-0); LYMPH # 0.6 10^3/uL (1.5-4.5); LYMPH % 6.4 % (24.0-44.0); MEAN CORPUSCULAR HEMOGLOBIN 28.2 pg (27.0-33.0); MEAN CORPUSCULAR HGB CONC 31.6 g/dl (32.0-36.5); MEAN CORPUSCULAR VOLUME 89.1 fl (80.0-96.0); MONO # 0.5 10^3/uL (0.0-0.8); MONO % 5.4 % (0.0-5.0); NEUTROPHILS # 8.6 10^3/uL (1.8-7.7); NEUTROPHILS % 87.1 % (36.0-66.0); PLATELET COUNT, AUTOMATED 228 10^3/uL (150-450); RED CELL DISTRIBUTION WIDTH 15.3 % (11.5-14.5); WHITE BLOOD COUNT 9.9 10^3/uL (4.0-10.0)
[2017-07-21 13:46] LABS: OSMOLALITY SERUM 306 MOSM/KG (280-301)
[2017-07-21 13:54] LABS: LACTIC ACID SEPSIS PROTOCOL 1.1 MMOL/L (0.4-2.0)
[2017-07-21 13:59] LABS: ALBUMIN 3.5 GM/DL (3.2-5.2); ALBUMIN/GLOBULIN RATIO 0.97 (1.00-1.93); ALKALINE PHOSPHATASE 146 U/L (45-117); ALT/SGPT < 6 U/L (12-78); ANION GAP 8 MEQ/L (8-16); AST/SGOT 11 U/L (7-37); BILIRUBIN,DIRECT 0.3 MG/DL (0.0-0.2); BILIRUBIN,TOTAL 0.7 MG/DL (0.2-1.0); BLOOD UREA NITROGEN 43 MG/DL (7-18); CALCIUM LEVEL 8.8 MG/DL (8.8-10.2); CARBON DIOXIDE LEVEL 34 MEQ/L (21-32); CHLORIDE LEVEL 98 MEQ/L (98-107); GLOMERULAR FILTRATION RATE 9.5 (>32); GLUCOSE, FASTING 72 MG/DL (83-110); SODIUM LEVEL 140 MEQ/L (136-145); TOTAL PROTEIN 7.1 GM/DL (6.4-8.2)
[2017-07-21 14:00] LABS: POTASSIUM SERUM 5.4 MEQ/L (3.5-5.1)
[2017-07-21 14:18] LABS: METHADONE URINE NEGATIVE (NEGATIVE)
[2017-07-21] MEDS ORDERED: LINEZOLID 600 MG in APPROPRIATE DILUENT 1 EA IV (15:45)
[2017-07-21] MEDS ORDERED: ONDANSETRON 4MG/2ML VIAL (J2405) IV ×2 (15:45)
[2017-07-21] MEDS ORDERED: BISACODYL 10 MG SUPP PR ×2 (15:45)
[2017-07-21] MEDS ORDERED: MOM 30ML SUSPENSION UDC PO ×2 (15:45)
[2017-07-21] MEDS ORDERED: NORCO, ANEXSIA 5/325MG TABLET (HYDROcodone/ACETAMINOPHEN) PO ×2 (15:45)
[2017-07-21] MEDS: LINEZOLID 600 MG in APPROPRIATE DILUENT 1 EA IV (15:56)
[2017-07-21] MEDS: SOD POLYSTYRENE SULFONATE SUSP 15 GM/60 ML UD PO ×2 (15:58)
[2017-07-21] MEDS: levETIRAcetam 250MG TABLET (KEPPRA) PO ×2 (16:00)
[2017-07-21] MEDS ORDERED: IPRATROPIUM 0.5MG/ALBUTEROL 2.5MG INH SOL UD 3ML (DUONEB)(J7620) NEB ×2 (16:00)
[2017-07-21] MEDS: NS 1,500 ML IV ×2 (16:30)
[2017-07-21] MEDS: IPRATROPIUM 0.5MG/ALBUTEROL 2.5MG INH SOL UD 3ML (DUONEB)(J7620) NEB ×4 (17:05→20:45)
[2017-07-21] MEDS: SINEMET 25-100 MG TAB PO ×4 (18:49→22:27)
[2017-07-21] MEDS: GABAPENTIN 400 MG CAP PO ×2 (22:27)
[2017-07-21] MEDS: ATENOLOL 25 MG TAB PO ×2 (22:28)
[2017-07-21] MEDS: AMANTADINE 100 MG CAP PO ×2 (22:29)
[2017-07-21] MEDS: SIMVASTATIN 20 MG TAB PO ×2 (22:37)
[2017-07-21] MEDS: HEPARIN SOD (PORCINE) 5000 UNITS/ML VIAL SQ ×2 (22:37)
[2017-07-21] MEDS: ACETAMINOPHEN TAB 650MG DOSE (2X325MG) PO ×2 (22:37)
[2017-07-21] MEDS: LACTOBACILLUS ACIDOPHILUS CAP (BACID) PO ×2 (22:44)
[2017-07-21] MEDS: SENOKOT S TAB PO ×2 (22:44)
[2017-07-22] MEDS: LINEZOLID 600 MG in APPROPRIATE DILUENT 1 EA IV (04:48)
[2017-07-22] MEDS: SINEMET 25-100 MG TAB PO ×4 (05:37→16:52)
[2017-07-22 05:48] LABS: URIC ACID,RANDOM URINE 23.3 MG/DL
[2017-07-22] MEDS: IPRATROPIUM 0.5MG/ALBUTEROL 2.5MG INH SOL UD 3ML (DUONEB)(J7620) NEB ×12 (06:06→21:24)
[2017-07-22 06:19] LABS: MEAN CORPUSCULAR HEMOGLOBIN 27.4 pg (27.0-33.0); MEAN CORPUSCULAR HGB CONC 30.8 g/dl (32.0-36.5); MEAN CORPUSCULAR VOLUME 89.1 fl (80.0-96.0); PLATELET COUNT, AUTOMATED 209 10^3/uL (150-450); RED CELL DISTRIBUTION WIDTH 15.2 % (11.5-14.5); WHITE BLOOD COUNT 9.7 10^3/uL (4.0-10.0)
[2017-07-22 06:36] LABS: ALBUMIN 3.1 GM/DL (3.2-5.2); ALBUMIN/GLOBULIN RATIO 0.94 (1.00-1.93); ALKALINE PHOSPHATASE 139 U/L (45-117); ALT/SGPT < 6 U/L (12-78); ANION GAP 7 MEQ/L (8-16); AST/SGOT 12 U/L (7-37); BILIRUBIN,TOTAL 0.7 MG/DL (0.2-1.0); BLOOD UREA NITROGEN 43 MG/DL (7-18); CALCIUM LEVEL 8.2 MG/DL (8.8-10.2); CARBON DIOXIDE LEVEL 32 MEQ/L (21-32); CHLORIDE LEVEL 102 MEQ/L (98-107); CREATININE FOR GFR 4.96 MG/DL (0.55-1.02); GLOMERULAR FILTRATION RATE 8.9 (>32); GLUCOSE, FASTING 99 MG/DL (83-110); MAGNESIUM LEVEL 1.7 MG/DL (1.8-2.4); POTASSIUM SERUM 4.8 MEQ/L (3.5-5.1); SODIUM LEVEL 141 MEQ/L (136-145); TOTAL PROTEIN 6.4 GM/DL (6.4-8.2)
[2017-07-22] MEDS: MAG SULF 1GM/100ML (MAG RUN) 1 GM in APPROPRIATE DILUENT 1 EA IV (10:22)
[2017-07-22] MEDS: LACTOBACILLUS ACIDOPHILUS CAP (BACID) PO ×6 (10:23→16:53)
[2017-07-22] MEDS: VENLAFAXINE **XR** 75MG CAPSULE PO ×2 (10:23)
[2017-07-22] MEDS: AMANTADINE 100 MG CAP PO ×2 (10:23)
[2017-07-22] MEDS: SINEMET**CR** 25/100 TABCR PO ×4 (10:23→15:38)
[2017-07-22] MEDS: levETIRAcetam 250MG TABLET (KEPPRA) PO ×4 (10:24→16:53)
[2017-07-22] MEDS: HEPARIN SOD (PORCINE) 5000 UNITS/ML VIAL SQ ×2 (10:24)
[2017-07-22] MEDS: SENOKOT S TAB PO ×2 (10:24)
[2017-07-22 12:14] LABS: GENTAMICIN LEVEL RANDOM 2.6 MCG/ML
[2017-07-22] MEDS: D5W/0.9% SODIUM CHLORIDE 1,000 ML IV ×2 (12:30)
[2017-07-22] MEDS ORDERED: LIDOCAINE 1% MDV 20ML VIAL As Ordered ×2 (15:02)
[2017-07-22] MEDS ORDERED: LINEZOLID 600MG TABLET (ZYVOX) PO ×2 (21:00)
== END 2017-07-23 01:35 | disposition expired | DRG 871 ==
LOC: M PCU 07-22 00:56 → M ED 11:48 → M ED INP 15:37
PROC: 0T913ZZ Drainage of Left Kidney, Percutaneous Approach (ICD-10-PCS; principal; 2017-07-22)
DX: A41.9 Sepsis, unspecified organism (principal); G93.41 Metabolic encephalopathy; N17.9 Acute kidney failure, unspecified; I50.32 Chronic diastolic (congestive) heart failure; N39.0 Urinary tract infection, site not specified; I44.2 Atrioventricular block, complete; R65.20 Severe sepsis without septic shock; E86.0 Dehydration; I10 Essential (primary) hypertension; E78.5 Hyperlipidemia, unspecified; Z51.5 Encounter for palliative care; Z66 Do not resuscitate; E87.5 Hyperkalemia; I25.10 Atherosclerotic heart disease of native coronary artery without angina pectoris; G20 Parkinson's disease; B95.2 Enterococcus as the cause of diseases classified elsewhere; G40.909 Epilepsy, unspecified, not intractable, without status epilepticus; K59.00 Constipation, unspecified; T36.5X5A Adverse effect of aminoglycosides, initial encounter; F41.9 Anxiety disorder, unspecified; F32.9 Major depressive disorder, single episode, unspecified; Z79.899 Other long term (current) drug therapy; Z88.6 Allergy status to analgesic agent; Z88.5 Allergy status to narcotic agent; Z88.8 Allergy status to other drugs, medicaments and biological substances; Z98.1 Arthrodesis status; Z90.710 Acquired absence of both cervix and uterus; Z90.49 Acquired absence of other specified parts of digestive tract; Z96.0 Presence of urogenital implants